=== PATIENT | female | born 1950 | race Caucasian/White ===

== ENCOUNTER 2017-05-31 05:55 | Emergency (ER) | payer MEDICARE ==
[2017-05-31] MEDS ORDERED: Zofran 4 MG/2 ML VIAL IV ONE (06:19)
[2017-05-31] MEDS ORDERED: ROCEPHIN 1 Gm-D5w 50 ml Bag** 1 G/50 ML IVPB IV STA (06:19)
--- NOTE | 2017-05-31 06:19 | ERPHSYRPT ---
- History of Present Illness Source: patient Exam Limitations: no limitations Patient Subjective Stated Complaint: sob this morning. being treated for sinus infection since thursday.. cough with clear phlegm. unsure of fever lynne to broken thermometer Triage Nursing Assessment: alert and oriented. slight SOA with exertion. color pink. skin warm dry. course lung sounds auscultated. head congestion with ear stuffiness. denies CP. no pedal edema noted. Timing/Duration: day(s) Cough Quality/Degree: productive cough Possible Cause: no prior episodes Modifying Factors: Improves With: activity Associated Symptoms: fever, cough, muscle aches, shortness of breath, sinus infection Hx Tetanus, Diphtheria Vaccination/Date Given: Yes Hx Influenza Vaccination/Date Given: Yes Hx Pneumococcal Vaccination/Date Given: Yes Immunizations Up to Date: (unknown) <ARISTEO DUMONT - Last Filed: 05/31/17 07:06> <PRITESH WISDOM - Last Filed: 05/31/17 10:34> - History of Present Illness Time Seen by Provider: 05/31/17 06:13 Physician History: pt has had flu like symptoms and cough several days and placed on AB but now is SObreath - concerned because she has CAD as well (ARISTEO DUMONT) Allergies/Adverse Reactions: No Known Drug Allergies Allergy (Verified 02/24/16 04:23) Home Medications: Lisinopril 5 mg PO HS 03/06/14 [History] Aspirin 324 mg PO DAILY 02/24/16 [History] Atorvastatin Calcium 80 mg PO HS 02/24/16 [History] Isosorbide Mononitrate 30 mg [Imdur 30 MG] 30 mg PO DAILY 02/24/16 [History ] Metoprolol Tartrate 25 mg [Lopressor 25MG Tab] 25 mg PO BID 02/24/16 [ History] Sertraline HCl 25 mg PO HS 02/24/16 [History] - Review of Systems Constitutional: No Fever, No Chills Eyes: No Symptoms Ears, Nose, & Throat: No Symptoms Respiratory: Cough, No Dyspnea Cardiac: No Chest Pain, No Edema, No Syncope Abdominal/Gastrointestinal: No Abdominal Pain, No Nausea, No Vomiting, No Diarrhea Genitourinary Symptoms: No Dysuria Musculoskeletal: No Back Pain, No Neck Pain Skin: No Rash Neurological: No Dizziness, No Focal Weakness, No Sensory Changes Psychological: No Symptoms Endocrine: No Symptoms All Other Systems: Reviewed and Negative <SEBASARISTEOABELINO EUCEDA - Last Filed: 05/31/17 07:06> - Past Medical History Pertinent Past Medical History: Yes Neurological History: No Pertinent History ENT History: No Pertinent History Cardiac History: Angina, Hypertension Respiratory History: No Pertinent History Endocrine Medical History: No Pertinent History Musculoskeletal History: No Pertinent History GI Medical History: Gallbladder Disease History: No Pertinent History Psycho-Social History: Anxiety, Depression Female Reproductive Disorders: Fibroids - Past Surgical History Past Surgical History: Yes Neuro Surgical History: No Pertinent History Cardiac: No Pertinent History Respiratory: No Pertinent History Gastrointestinal: Cholecystectomy Genitourinary: No Pertinent History Musculoskeletal: No Pertinent History Female Surgical History: Hysterectomy - Social History Smoking Status: Never smoker Exposure to second hand smoke: No Drug Use: none Patient Lives Alone: No - Female History Hx Now: No <ARISTEO DUMONT - Last Filed: 05/31/17 07:06> - Physical Exam General Appearance: no apparent distress, alert Eye Exam: PERRL/EOMI, eyes nml inspection Ears, Nose, Throat Exam: normal ENT inspection, TMs normal, pharynx normal, moist mucous membranes Neck Exam: normal inspection, non-tender, supple, full range of motion Respiratory Exam: airway intact, crackles/rales, rhonchi, No respiratory distress Cardiovascular Exam: regular rate/rhythm, normal heart sounds Gastrointestinal/Abdomen Exam: soft, No tenderness Back Exam: normal inspection, No CVA tenderness, No vertebral tenderness Extremity Exam: normal inspection, normal range of motion Neurologic Exam: alert, oriented x 3, cooperative, normal mood/affect, sensation nml, No motor deficits Skin Exam: normal color, warm, dry, No rash Lymphatic Exam: No adenopathy SpO2: 95 Oxygen Delivery: Room Air <ARISTEO DUMONT - Last Filed: 05/31/17 07:06> - Nursing Vital Signs Nursing Vital Signs: Initial Vital Signs Temperature 98.7 F 05/31/17 06:06 Pulse Rate 96 H 05/31/17 06:06 Respiratory Rate 18 05/31/17 06:06 Blood Pressure 138/91 05/31/17 06:06 O2 Sat by Pulse Oximetry 95 05/31/17 06:06 Pain Scale Pain Intensity 0 - Course Nursing assessment & vital signs reviewed: Yes EKG Interpreted by Me: Sinus Rhythm, Right Bundle Branch Block, Non-specific ST Changes - Radiology Exams Chest X-ray Interpretation: Reviewed by me, Infiltrates (bilateral infiltrates RML,LLL /lingula) <ARISTEO DUMONT - Last Filed: 05/31/17 07:06> - CT Exams CTA chest CT Interpretation: Tele-radiologist Report, No PE (no pneumonia) <PRITESH WISDOM - Last Filed: 05/31/17 10:34> Ordered Tests: Active Orders 24 hr Category Date Time Status Button Cutting Machine Operator STAT Care 05/31/17 06:20 Active Clean Catch Urine Specimen STAT Care 05/31/17 06:19 Active EKG-ER Only STAT Care 05/31/17 06:19 Active IV Insertion STAT Care 05/31/17 06:19 Active Oxygen-ED Only NASAL CANNULA 2 lpm Care 05/31/17 06:19 Active CHEST 1 VIEW (PORTABLE) Stat Exams 05/31/17 06:19 Completed CHEST WITH CONTRAST [CT] Stat Exams 05/31/17 07:35 Completed CBC W DIFF Stat Lab 05/31/17 06:30 Completed CMP Stat Lab 05/31/17 06:30 Completed CULTURE, THROAT Stat Lab 05/31/17 07:05 Received D-DIMER QUANTITATION Stat Lab 05/31/17 06:48 Completed Lactic Acid Stat Lab 05/31/17 06:30 Completed Lactic Acid Stat Lab 05/31/17 09:30 Completed NT PRO BNP Stat Lab 05/31/17 06:30 Completed STREP SCREEN-BETA A Stat Lab 05/31/17 07:05 Completed TROPONIN Q3H Lab 05/31/17 06:30 Completed TROPONIN Q3H Lab 05/31/17 09:30 Completed TROPONIN Q3H Lab 05/31/17 12:30 Ordered TROPONIN Q3H Lab 05/31/17 15:30 Ordered TROPONIN Q3H Lab 05/31/17 18:30 Ordered UA W/RFX UR CULTURE Stat Lab 05/31/17 06:19 Ordered Respiratory Nebulizer STAT RT 05/31/17 06:31 Completed Respiratory Nebulizer STAT RT 05/31/17 10:27 Active Medication Summary Generic Name Dose Route Start Last Admin Trade Name Freq PRN Reason Stop Dose Admin Sodium Chloride 1,000 mls @ 50 mls/hr 05/31/17 06:30 05/31/17 06:33 Sodium Chloride 0.9% 1000 Ml IV 06/30/17 06:29 50 mls/hr .Q20H TOÑO Administration Discontinued Medications Generic Name Dose Route Start Last Admin Trade Name Harsha PRN Reason Stop Dose Admin Albuterol Sulfate 2.5 mg 05/31/17 10:27 05/31/17 10:32 Proventil 2.5 Mg/3 Ml Neb IH 05/31/17 10:28 2.5 mg STAT ONE Administration Albuterol Sulfate Confirm 05/31/17 10:31 Proventil 2.5 Mg/3 Ml Neb Administered 05/31/17 10:32 Dose 2.5 mg IH .STK-MED ONE Albuterol/Ipratropium 3 ml 05/31/17 06:30 05/31/17 06:53 Duoneb 0.5-3 Mg/3 Ml Neb IH 05/31/17 06:31 3 ml STAT ONE Administration Albuterol/Ipratropium Confirm 05/31/17 06:52 Duoneb 0.5-3 Mg/3 Ml Neb Administered 05/31/17 06:53 Dose 3 ml IH .STK-MED ONE Aspirin 324 mg 05/31/17 06:55 05/31/17 06:57 Baby Aspirin 81 Mg Chew PO 05/31/17 06:56 324 mg STAT ONE Administration Aspirin Confirm 05/31/17 06:56 Baby Aspirin 81 Mg Chew Administered 05/31/17 06:57 Dose 324 mg .ROUTE .STK-MED ONE Ceftriaxone Sodium/Dextrose 1 g in 50 mls @ 100 mls/hr 05/31/17 06:19 06:33 Rocephin 1 Gm-D5w 50 Ml Bag IV 05/31/17 06:48 100 mls/hr STAT STA Administration Ceftriaxone Sodium/Dextrose Confirm 05/31/17 06:26 Rocephin 1 Gm-D5w 50 Ml Bag Administered 05/31/17 06:27 Dose 1 g in 50 mls @ ud IV .STK-MED ONE Azithromycin 500 mg in 250 mls @ 250 mls/hr 05/31/17 06:27 05/31/17 08:37 Zithromax 500 Mg/ 250 Ml Nacl Premix IV 05/31/17 07:26 250 mls/hr STAT STA Administration Piperacillin Sod/Tazobactam Sod 3.375 gm in 100 mls @ 200 mls/hr 05/31/17 06: 27 05/31/17 06:52 Zosyn 3.375gm/100 Ml D5w IV 05/31/17 06:56 200 mls/hr STAT STA Administration Piperacillin Sod/Tazobactam Sod Confirm 05/31/17 06:39 Zosyn 3.375gm/100 Ml D5w Administered 05/31/17 06:40 Dose 3.375 gm in 100 mls @ ud IV .STK-MED ONE Azithromycin Confirm 05/31/17 08:13 Zithromax 500 Mg/ 250 Ml Nacl Premix Administered 05/31/17 08:14 Dose 500 mg in 250 mls @ ud IV .STK-MED ONE Methylprednisolone Sodium Succinate 40 mg 05/31/17 06:49 05/31/17 07:01 Solu-Medrol 125 Mg IV 05/31/17 06:50 40 mg STAT ONE Administration Methylprednisolone Sodium Succinate Confirm 05/31/17 06:59 Solu-Medrol 125 Mg Administered 05/31/17 07:00 Dose 125 mg .ROUTE .STK-MED ONE Ondansetron HCl 4 mg 05/31/17 06:19 05/31/17 06:33 Zofran 4 Mg/2 Ml Vial IV 05/31/17 06:20 4 mg STAT ONE Administration Ondansetron HCl Confirm 05/31/17 06:26 Zofran 4 Mg/2 Ml Vial Administered 05/31/17 06:27 Dose 4 mg .ROUTE .STK-MED ONE Lab/Rad Data: Laboratory Result Diagrams 05/31/17 06:30 05/31/17 06:30 Laboratory Results 05/31/17 05/31/17 05/31/17 Range/Units 09:30 09:30 07:05 WBC (4.0-10.5) K/mm3 RBC (4.1-5.4) M/mm3 Hgb (12.0-16.0) gm/dl Hct (35-47) % MCV (78-100) fl MCH (26-32) pg MCHC (32-36) g/dl RDW (11.5-14.0) % Plt Count (150-450) K/mm3 MPV (6-9.5) fl Gran % (36.0-66.0) % Lymphocytes % (24.0-44.0) % Monocytes % (0.0-12.0) % Eosinophils % (0.00-5.0) % Basophils % (0.0-0.4) % Basophils # (0-0.4) D-Dimer (215-500) ng/mL Sodium (137-145) mmol/L Potassium (3.5-5.1) mmol/L Chloride (98-107) mmol/L Carbon Dioxide (22-30) mmol/L Anion Gap (5-15) MEQ/L BUN (7-17) mg/dL Creatinine (0.52-1.04) mg/dL Estimated GFR ML/MIN Glucose (74-106) mg/dL Lactic Acid 1.1 (0.4-2.0) Calcium (8.4-10.2) mg/dL Total Bilirubin (0.2-1.3) mg/dL AST (14-36) U/L ALT (0-35) U/L Alkaline Phosphatase (38-126) U/L Troponin I < 0.012 (0.000-0.034) ng/mL NT-Pro-B Natriuret Pep (0-900) pg/mL Serum Total Protein (6.3-8.2) g/dL Albumin (3.5-5.0) g/dL Influenza Type A Ag (NEGATIVE) Influenza Type B Ag (NEGATIVE) RSV (PCR) (Negative) Streptococcus Screen NEGATIVE (Negative) 05/31/17 05/31/17 05/31/17 Range/Units 06:48 06:40 06:30 WBC (4.0-10.5) K/mm3 RBC (4.1-5.4) M/mm3 Hgb (12.0-16.0) gm/dl Hct (35-47) % MCV (78-100) fl MCH (26-32) pg MCHC (32-36) g/dl RDW (11.5-14.0) % Plt Count (150-450) K/mm3 MPV (6-9.5) fl Gran % (36.0-66.0) % Lymphocytes % (24.0-44.0) % Monocytes % (0.0-12.0) % Eosinophils % (0.00-5.0) % Basophils % (0.0-0.4) % Basophils # (0-0.4) D-Dimer 1145.17 H* (215-500) ng/mL Sodium (137-145) mmol/L Potassium (3.5-5.1) mmol/L Chloride (98-107) mmol/L Carbon Dioxide (22-30) mmol/L Anion Gap (5-15) MEQ/L BUN (7-17) mg/dL Creatinine (0.52-1.04) mg/dL Estimated GFR ML/MIN Glucose (74-106) mg/dL Lactic Acid (0.4-2.0) Calcium (8.4-10.2) mg/dL Total Bilirubin (0.2-1.3) mg/dL AST (14-36) U/L ALT (0-35) U/L Alkaline Phosphatase (38-126) U/L Troponin I < 0.012 (0.000-0.034) ng/mL NT-Pro-B Natriuret Pep (0-900) pg/mL Serum Total Protein (6.3-8.2) g/dL Albumin (3.5-5.0) g/dL Influenza Type A Ag NEGATIVE (NEGATIVE) Influenza Type B Ag NEGATIVE (NEGATIVE) RSV (PCR) NEGATIVE (Negative) Streptococcus Screen (Negative) 05/31/17 05/31/17 05/31/17 Range/Units 06:30 06:30 06:30 WBC 8.6 (4.0-10.5) K/mm3 RBC 5.07 (4.1-5.4) M/mm3 Hgb 14.5 (12.0-16.0) gm/dl Hct 44.5 (35-47) % MCV 87.8 (78-100) fl MCH 28.6 (26-32) pg MCHC 32.6 (32-36) g/dl RDW 15.2 H (11.5-14.0) % Plt Count 232 (150-450) K/mm3 MPV 12.0 H (6-9.5) fl Gran % 62.4 (36.0-66.0) % Lymphocytes % 22.1 L (24.0-44.0) % Monocytes % 10.8 (0.0-12.0) % Eosinophils % 4.4 (0.00-5.0) % Basophils % 0.3 (0.0-0.4) % Basophils # 0.03 (0-0.4) D-Dimer (215-500) ng/mL Sodium 140 (137-145) mmol/L Potassium 3.7 (3.5-5.1) mmol/L Chloride 104 (98-107) mmol/L Carbon Dioxide 25 (22-30) mmol/L Anion Gap 15.5 H (5-15) MEQ/L BUN 15 (7-17) mg/dL Creatinine 0.67 (0.52-1.04) mg/dL Estimated GFR > 60 ML/MIN Glucose 129 H (74-106) mg/dL Lactic Acid 2.0 (0.4-2.0) Calcium 9.2 (8.4-10.2) mg/dL Total Bilirubin 0.40 (0.2-1.3) mg/dL AST 22 (14-36) U/L ALT 21 (0-35) U/L Alkaline Phosphatase 118 (38-126) U/L Troponin I (0.000-0.034) ng/mL NT-Pro-B Natriuret Pep 263 (0-900) pg/mL Serum Total Protein 7.1 (6.3-8.2) g/dL Albumin 3.9 (3.5-5.0) g/dL Influenza Type A Ag (NEGATIVE) Influenza Type B Ag (NEGATIVE) RSV (PCR) (Negative) Streptococcus Screen (Negative) - Progress Progress: re-examined Air Movement: good Blood Culture(s) Obtained: No Antibiotics given: Yes Counseled pt/family regarding: diagnosis, need for follow-up, rad results <ARISTEO DUMONT - Last Filed: 05/31/17 07:06> <PRITESH WISDOM - Last Filed: 05/31/17 10:34> - Progress Progress Note: 05/31/17 06:53 the infiltrates are similar to those observed chronically for the past few years , and with normal WBC and no fever and acute sobreath there is concern for potential cardiac or PE so D-Dimer and trops are ordered. and ASA given 05/31/17 07:03 [address] over to Dr Wisdom after discussion of pending labs for disp and tx ( ARISTEO DUMONT) 05/31/17 07:55 Hx: 66 y/o patient of Dr Senior was initially seen per Dr Dumont. She has recent sinus drng and cough. Some fevers at home. She awoke this AM around 4AM with moderately severe shortness of breath. Had to sit in her chair to breath. Could not lie flat. No chest pain. No N/V. She saw Dr Senior recently for the sinuses and started augmentin which gave her diarrhea. Prior CABG. She has a neb machine at home but has not been using it. PE: awake, alert, pleasant, obese. Lungs clear. Abd soft and NT. Some pedal edema. D-dimer was elevated so CTA chest ordered per Dr Dumont plan. 05/31/17 09:36 CTA negative. She is feeling better. Has ambulated well. Will stop augmentin due to diarrhea. Add zithromax and she will start her albuterol. Rx prednsone. To follow up with Dr Senior. 05/31/17 10:34 Ambulated well. 2nd alb neb given. 2nd troponin neg. (PRITESH WISDOM) <ARISTEO DUMONT - Last Filed: 05/31/17 07:06> - Departure Time of Disposition: 10:34 Departure Disposition: Home Critical Care Time: No <PRITESH WISDOM - Last Filed: 05/31/17 10:34> - Departure Clinical Impression: Acute bronchitis, Shortness of breath Condition: Stable Referrals: MARTINE SENIOR [Primary Care Provider] - Instructions: Acute Bronchitis, Adult (DC), Cough, Adult (DC) Additional Instructions: UPPER RESPIRATORY INFECTIONS 1. The signs and symptoms of a cold may last up to 10 days. These illnesses are due to viruses which are not treatable with antibiotics. 2. The following suggestions can aid in recovery and to minimize symptoms: A. Increase fluid intake. B. Acetaminophen or Ibuprofen as directed. C. Avoid smoking environments as this will increase the risk of developing pneumonia. D. For children, may use a cool mist vaporizer in the child's room. 3. Contact your Family Physician if you note: A. Persisten fever >103 for more than 3 days B. Breathing difficulty C. Productive cough of yellow/green sputum D. Illness greater than 7 days E. Persistent vomiting F. Stiff neck Rx zithromax to start Thursday AM. Rx prednisone to start Thursday. Take your albuterol nebs every 4 hours. Follow up with Dr Senior in 1-2 days. Return for problems or concerns. Prescriptions: Azithromycin 250 mg [Zithromax 250 MG TABLET] 1 tab PO DAILY #4 tablet Prednisone 20 mg [Deltasone 20 mg] 2 tab PO DAILY #10 tablet
[2017-05-31] MEDS ORDERED: ROCEPHIN 1 Gm-D5w 50 ml Bag** 1 G/50 ML IVPB IV ONE (06:26)
[2017-05-31] MEDS ORDERED: Zofran 4 MG/2 ML VIAL ONE (06:26)
[2017-05-31] MEDS ORDERED: Sodium Chloride 0.9% 1000 ML 1,000 ML ONE (06:26)
[2017-05-31] MEDS ORDERED: Zosyn 3.375GM/100 Ml D5W 3.375 GM/100 ML IVPB IV STA (06:27)
[2017-05-31] MEDS ORDERED: Zithromax 500 MG/ 250 ML NaCl Premix 500 MG/250 ML IVPB IV STA (06:27)
[2017-05-31] MEDS ORDERED: Sodium Chloride 0.9% 1000 ML 1,000 ML IV SCH (06:30)
[2017-05-31] MEDS ORDERED: DUONEB 0.5-3 MG/3 ml Neb IH ONE ×2 (06:30→06:52)
[2017-05-31] MEDS ORDERED: Zosyn 3.375GM/100 Ml D5W 3.375 GM/100 ML IVPB IV ONE (06:39)
[2017-05-31 06:41] LABS: BASOPHIL % 0.3 % (0.0-0.4); Basophil (Absolute #) 0.03 (0-0.4); Eosinophil % 4.4 % (0.00-5.0); Eosinophil (Absolute #) 0.38 (0-0.5); Granulocyte Absolute (ANC) 5.34 (1.4-6.9); Granulocytes % 62.4 % (36.0-66.0); Hematocrit 44.5 % (35-47); Hemoglobin 14.5 gm/dl (12.0-16.0); Lymphocytes % 22.1 % (24.0-44.0); Mean Cell Volume 87.8 fl (78-100); Mean Corpuscular Hemoglobin 28.6 pg (26-32); Mean Corpuscular Hgb Concent. 32.6 g/dl (32-36); Monocyte (Absolute #) 0.93 (0.0-1.3); Monocytes % 10.8 % (0.0-12.0); Platelet Count 232 K/mm3 (150-450); Red Blood Count 5.07 M/mm3 (4.1-5.4); Red Cell Distribution Width 15.2 % (11.5-14.0); White Blood Count 8.6 K/mm3 (4.0-10.5)
[2017-05-31] MEDS ORDERED: solu-MEDROL 125 MG IV ONE (06:49)
[2017-05-31] MEDS ORDERED: BABY ASPIRIN 81 MG CHEW PO ONE (06:55)
[2017-05-31] MEDS ORDERED: BABY ASPIRIN 81 MG CHEW ONE (06:56)
[2017-05-31] MEDS ORDERED: solu-MEDROL 125 MG ONE (06:59)
[2017-05-31 07:07] LABS: ALBUMIN 3.9 g/dL (3.5-5.0); ALKALINE PHOSPHATASE 118 U/L (38-126); ANION GAP 15.5 MEQ/L (5-15); BLOOD UREA NITROGEN 15 mg/dL (7-17); CHLORIDE 104 mmol/L (98-107); Calcium 9.2 mg/dL (8.4-10.2); Carbon Dioxide 25 mmol/L (22-30); Creatinine 1 0.67 mg/dL (0.52-1.04); Glucose 129 mg/dL (74-106); Potassium 3.7 mmol/L (3.5-5.1); SGOT/AST 22 U/L (14-36); SGPT/ALT 21 U/L (0-35); SODIUM 140 mmol/L (137-145); Total Protein 7.1 g/dL (6.3-8.2)
[2017-05-31 07:15] LABS: NT PRO BNP 263 pg/mL (0-900)
[2017-05-31 07:49] LABS: INFLUENZA A NEGATIVE (NEGATIVE); INFLUENZA B NEGATIVE (NEGATIVE); RESPIRATORY SYNCTIAL VIRUS NEGATIVE (Negative)
[2017-05-31] MEDS ORDERED: Zithromax 500 MG/ 250 ML NaCl Premix 500 MG/250 ML IVPB IV ONE (08:13)
[2017-05-31 08:50] VITALS: BP 129/69
--- NOTE | 2017-05-31 09:33 | XRAY ---
Indication: Short of breath. Comparison: February 24, 2016. Portable chest unchanged again demonstrating stable lingular fibrosis/scarring and CABG surgery. Remaining heart and lungs unremarkable. Bony thorax intact again with mild osteopenia and degenerative changes.
--- NOTE | 2017-05-31 09:36 | XRAY ---
Indication: Short of breath. Elevated d-dimer. Multiple contiguous axial images obtained through the chest using 80 cc Isovue 370 contrast and PE protocol. Comparison: July 26, 2015. There is good opacification of the pulmonary arteries to include the lobar and segmental branches. Again no filling defect or pulmonary embolus. Heart is not enlarged and demonstrates interval CABG surgery. Aorta remains mildly arteriosclerotic without aneurysm/dissection. No pathologic mediastinal/hilar lymphadenopathy. Examination of the lung parenchyma demonstrates stable benign left upper lobe noncalcified micronodule. Minimal bibasilar dependent atelectasis and lingular fibrosis/scarring. No new pulmonary mass, infiltrate, or effusion. Bony thorax intact again with mild degenerative changes throughout the spine. Limited upper abdomen demonstrate stable hepatic cyst and cholecystectomy clips. Impression: 1. Again negative pulmonary embolus. No acute cardiopulmonary abnormalities. 2. Interval CABG surgery. 3. Stable left upper lobe benign micronodule and hepatic cyst. Comment: Preliminary interpretation was made by [facility]. No discrepancy. CTDI 23.68
[2017-05-31] MEDS ORDERED: PROVENTIL 2.5 MG/3 ML NEB IH ONE ×2 (10:27→10:31)
[2017-05-31 11:26] VITALS: PULSE 86; O2SAT 93
== END 2017-05-31 10:44 | disposition home or self-care (01) ==
LOC: ED 05:55
DX: J20.9 Acute bronchitis, unspecified (principal); R06.02 Shortness of breath; R79.1 Abnormal coagulation profile; Z95.1 Presence of aortocoronary bypass graft; K52.1 Toxic gastroenteritis and colitis; T36.0X5A Adverse effect of penicillins, initial encounter; I25.10 Atherosclerotic heart disease of native coronary artery without angina pectoris; I45.10 Unspecified right bundle-branch block; Z79.899 Other long term (current) drug therapy
CPT/HCPCS: 36000; 36415; 71045; 71260; 80053; 83605; 83880; 84484; 85025; 85379; 87070; 87430; 87631; 93005; 93041; 94150; 94640; 96360; 96361; 96365; 96366; 96367; 96374; 96375; 99284; J0456; J0696; J2405; J2543; J2930; A9270-GY

== ENCOUNTER 2020-12-02 21:43 | Observation (INO) | payer MEDICARE ==
[2020-12-02] MEDS ORDERED: Lasix 40 MG/4 ML IV ONE (22:03)
[2020-12-02] MEDS ORDERED: NITRO-BID 2% UD PACKETS TOP ONE (22:03)
[2020-12-02] MEDS ORDERED: DUONEB 0.5-3 MG/3 ml Neb IH ONE ×2 (22:03→22:22)
[2020-12-02] MEDS ORDERED: BABY ASPIRIN 81 MG CHEW PO ONE (22:04)
[2020-12-02] MEDS ORDERED: Lasix 40 MG/4 ML ONE (22:08)
[2020-12-02] MEDS ORDERED: BABY ASPIRIN 81 MG CHEW ONE (22:08)
[2020-12-02] MEDS ORDERED: NITRO-BID 2% UD PACKETS ONE (22:08)
--- NOTE | 2020-12-02 22:31 | ERPHSYRPT ---
- History of Present Illness Time Seen by Provider: 12/02/20 21:51 Source: patient, EMS Exam Limitations: no limitations Physician History: 69 years old morbidly obese female with history of coronary artery disease status post stenting, congestive heart failure, hypertension presented to the ER with increasing shortness of breath since yesterday. Patient report initially it was more with activity and today she is having shortness of breath even at resting. She took her breathing treatment but does not seem to help much. On EMS arrival her oxygen saturation was 91%, placed on 4 L and was 95% on arrival in the ER. Patient noted chest pain but noticed increased swelling in bilateral lower extremities. No fever chills reported. Minimal nonproductive cough. D enies any sick contact. Vaccinated against COVID-19. Timing/Duration: yesterday, constant, gradual onset, worse Activities at Onset: activity, rest Severity of Dyspnea-Max: moderate Severity of Dyspnea-Current: moderate Possible Cause: unknown cause Modifying Factors: Improves With: albuterol nebulizer, oxygen, rest. Worsens With: exertion Associated Symptoms: cough, edema, heaviness, tightness, No chest pain/discomfort, No productive cough Allergies/Adverse Reactions: No Known Drug Allergies Allergy (Verified 02/24/16 04:23) Home Medications: lisinopriL [Lisinopril] 20 mg PO DAILY 03/06/14 [History] Atorvastatin Calcium 80 mg PO DAILY 02/24/16 [History] Isosorbide Mononitrate 30 mg [Imdur 30 MG] 30 mg PO DAILY 02/24/16 [History] Amlodipine Besylate [Norvasc] 5 mg PO DAILY 12/02/20 [History] Hx Tetanus, Diphtheria Vaccination/Date Given: Yes Hx Influenza Vaccination/Date Given: Yes Hx Pneumococcal Vaccination/Date Given: Yes - Review of Systems Constitutional: No Symptoms Eyes: No Symptoms Ears, Nose, & Throat: No Symptoms Respiratory: Cough, Dyspnea, Dyspnea on Exertion (BAH) Cardiac: Edema Abdominal/Gastrointestinal: No Symptoms Genitourinary Symptoms: No Symptoms Musculoskeletal: Arthralgias Skin: No Symptoms Neurological: No Symptoms Psychological: No Symptoms Endocrine: No Symptoms Hematologic/Lymphatic: No Symptoms Immunological/Allergic: No Symptoms - Past Medical History Pertinent Past Medical History: Yes Neurological History: No Pertinent History ENT History: No Pertinent History Cardiac History: Angina, Hypertension Respiratory History: No Pertinent History Endocrine Medical History: No Pertinent History Musculoskeletal History: No Pertinent History GI Medical History: Gallbladder Disease History: No Pertinent History Psycho-Social History: Anxiety, Depression Female Reproductive Disorders: Fibroids - Past Surgical History Past Surgical History: Yes Neuro Surgical History: No Pertinent History Cardiac: No Pertinent History Respiratory: No Pertinent History Gastrointestinal: Cholecystectomy Genitourinary: No Pertinent History Musculoskeletal: No Pertinent History Female Surgical History: Hysterectomy - Social History Smoking Status: Never smoker Exposure to second hand smoke: No Drug Use: none Patient Lives Alone: No - Nursing Vital Signs Nursing Vital Signs: Initial Vital Signs Temperature 98.4 F 12/02/20 21:59 Pulse Rate 91 H 12/02/20 21:59 Respiratory Rate 32 H 12/02/20 21:59 Blood Pressure 198/101 12/02/20 21:59 O2 Sat by Pulse Oximetry 99 12/02/20 21:59 Pain Scale Pain Intensity 0 - Physical Exam General Appearance: no apparent distress, alert Eye Exam: PERRL/EOMI, eyes nml inspection Ears, Nose, Throat Exam: hearing grossly normal, normal ENT inspection, normal pharynx Neck Exam: normal inspection, non-tender, full range of motion Respiratory Exam: diminished breath sounds, crackles/rales, rhonchi, No respiratory distress Cardiovascular/Chest Exam: normal heart sounds, regular rate/rhythm, edema Abdominal/Gastrointestinal Exam: soft, normal bowel sounds, No tenderness Extremity Exam: non-tender, normal range of motion, normal inspection, pedal edema (Bilateral nonpitting) Neurologic Exam: alert, oriented x 3, cooperative Skin Exam: normal color SpO2 Interpretation: O2 applied SpO2: 95 O2 Delivery: Nasal Cannula - Course EKG Interpreted by Me: RATE ([id number]), Sinus Rhythm, NORMAL AXIS, Right Bundle Branch Block, Non-specific ST Changes Ordered Tests: Active Orders 24 hr Category Date Time Status [employer] STAT Care 12/02/20 22:03 Active EKG-ER Only STAT Care 12/02/20 22:03 Active Gonzalez [Catheter-[place] Gonzalez] STAT Care 12/02/20 22:34 Active IV Insertion STAT Care 12/02/20 22:03 Active Oxygen-ED Only Nasal Cannula 2 lpm Care 12/02/20 22:03 Active CHEST 1 VIEW (PORTABLE) Stat Exams 12/02/20 22:03 Taken BLOOD CULTURE Stat Lab 12/02/20 22:28 Ordered CBC W DIFF Stat Lab 12/02/20 22:28 Completed CMP Stat Lab 12/02/20 22:28 Completed Lactic Acid Stat Lab 12/02/20 22:43 Completed MAGNESIUM Stat Lab 12/02/20 22:28 Completed NT PRO BNP Stat Lab 12/02/20 22:28 Completed TROPONIN Q3H Lab 12/02/20 22:31 Completed TROPONIN Q3H Lab 12/03/20 01:15 Ordered TROPONIN Q3H Lab 12/03/20 04:15 Ordered TROPONIN Q3H Lab 12/03/20 07:15 Ordered TROPONIN Q3H Lab 12/03/20 10:15 Ordered Respiratory Therapy Assessment DAILY RT 12/02/20 22:39 Active Medication Summary Generic Name Dose Route Start Last Admin Trade Name Freq PRN Reason Stop Dose Admin Azithromycin 500 mg in 250 mls @ 250 mls/hr 12/02/20 23:10 Zithromax 500 Mg/ 250 Ml Nacl Premix IV 12/03/20 00:09 STAT STA Ceftriaxone Sodium/Dextrose 2 g in 50 mls @ 100 mls/hr 12/02/20 23:10 Rocephin 2 Gm-D5w 50ml Bag IV 12/02/20 23:39 STAT STA Discontinued Medications Generic Name Dose Route Start Last Admin Trade Name Freq PRN Reason Stop Dose Admin Albuterol/Ipratropium 3 ml 12/02/20 22:03 12/02/20 22:15 Duoneb 0.5-3 Mg/3 Ml Neb IH 12/02/20 22:04 3 ml STAT ONE Administration Albuterol/Ipratropium Confirm 12/02/20 22:22 Duoneb 0.5-3 Mg/3 Ml Neb Administered 12/02/20 22:23 Dose 3 ml IH .STK-MED ONE Aspirin 324 mg 12/02/20 22:04 12/02/20 22:12 Baby Aspirin 81 Mg Chew PO 12/02/20 22:05 324 mg STAT ONE Administration Aspirin Confirm 12/02/20 22:08 Baby Aspirin 81 Mg Chew Administered 12/02/20 22:09 Dose 324 mg .ROUTE .STK-MED ONE Furosemide 60 mg 12/02/20 22:03 12/02/20 22:13 Lasix 40 Mg/4 Ml IV 12/02/20 22:04 60 mg STAT ONE Administration Furosemide Confirm 12/02/20 22:08 Lasix 40 Mg/4 Ml Administered 12/02/20 22:09 Dose 80 mg .ROUTE .STK-MED ONE Nitroglycerin 1 gm 12/02/20 22:03 12/02/20 22:12 Nitro-Bid 2% Ud Packets TOP 12/02/20 22:04 1 gm STAT ONE Administration Nitroglycerin Confirm 12/02/20 22:08 Nitro-Bid 2% Ud Packets Administered 12/02/20 22:09 Dose 1 gm .ROUTE .STK-MED ONE Lab/Rad Data: Laboratory Result Diagrams 12/02/20 22:28 12/02/20 22:28 Laboratory Results 12/02/20 12/02/20 12/02/20 Range/Units 22:43 22:31 22:28 WBC (4.0-10.5) K/mm3 RBC (4.1-5.4) M/mm3 Hgb (12.0-16.0) gm/dl Hct (35-47) % MCV (78-100) fl MCH (26-32) pg MCHC (32-36) g/dl RDW (11.5-14.0) % Plt Count (150-450) K/mm3 MPV (7.5-11.0) fl Gran % (36.0-66.0) % Eos # (Auto) (0-0.5) Absolute Lymphs (auto) (1.0-4.6) Absolute Monos (auto) (0.0-1.3) Lymphocytes % (24.0-44.0) % Monocytes % (0.0-12.0) % Eosinophils % (0.00-5.0) % Basophils % (0.0-0.4) % Absolute Granulocytes (1.4-6.9) Basophils # (0-0.4) Sodium 137 (137-145) mmol/L Potassium 3.8 (3.5-5.1) mmol/L Chloride 106 (98-107) mmol/L Carbon Dioxide 22 (22-30) mmol/L Anion Gap 12.8 (5-15) MEQ/L BUN 18 H (7-17) mg/dL Creatinine 0.73 (0.52-1.04) mg/dL Estimated GFR > 60.0 ML/MIN Glucose 121 H (74-106) mg/dL Lactic Acid 1.1 (0.4-2.0) Calcium 9.0 (8.4-10.2) mg/dL Magnesium 2.0 (1.6-2.3) mg/dL Total Bilirubin 0.60 (0.2-1.3) mg/dL AST 35 (14-36) U/L ALT 39 H (0-35) U/L Alkaline Phosphatase 118 (38-126) U/L Troponin I 0.020 (0.000-0.034) ng/mL NT-Pro-B Natriuret Pep 1960 H (0-900) pg/mL Serum Total Protein 7.1 (6.3-8.2) g/dL Albumin 4.0 (3.5-5.0) g/dL 12/02/20 Range/Units 22:28 WBC 10.2 (4.0-10.5) K/mm3 RBC 4.92 (4.1-5.4) M/mm3 Hgb 13.7 (12.0-16.0) gm/dl Hct 43.1 (35-47) % MCV 87.6 (78-100) fl MCH 27.8 (26-32) pg MCHC 31.8 L (32-36) g/dl RDW 16.3 H (11.5-14.0) % Plt Count 214 (150-450) K/mm3 MPV 12.3 H (7.5-11.0) fl Gran % 76.0 H (36.0-66.0) % Eos # (Auto) 0.24 (0-0.5) Absolute Lymphs (auto) 1.39 (1.0-4.6) Absolute Monos (auto) 0.79 (0.0-1.3) Lymphocytes % 13.6 L (24.0-44.0) % Monocytes % 7.8 (0.0-12.0) % Eosinophils % 2.4 (0.00-5.0) % Basophils % 0.2 (0.0-0.4) % Absolute Granulocytes 7.75 H (1.4-6.9) Basophils # 0.02 (0-0.4) Sodium (137-145) mmol/L Potassium (3.5-5.1) mmol/L Chloride (98-107) mmol/L Carbon Dioxide (22-30) mmol/L Anion Gap (5-15) MEQ/L BUN (7-17) mg/dL Creatinine (0.52-1.04) mg/dL Estimated GFR ML/MIN Glucose (74-106) mg/dL Lactic Acid (0.4-2.0) Calcium (8.4-10.2) mg/dL Magnesium (1.6-2.3) mg/dL Total Bilirubin (0.2-1.3) mg/dL AST (14-36) U/L ALT (0-35) U/L Alkaline Phosphatase (38-126) U/L Troponin I (0.000-0.034) ng/mL NT-Pro-B Natriuret Pep (0-900) pg/mL Serum Total Protein (6.3-8.2) g/dL Albumin (3.5-5.0) g/dL - Progress Progress: improved, re-examined Air Movement: fair Progress Note: 12/02/20 23:16 69 years old is evaluated for increasing dyspnea on exertion and dropping oxygen saturation. She is on 2 to 3 L with sats around 95%. She received neb treatment prior to arrival and I have given her 60 of Lasix and Nitropaste, on reevaluation she is feeling much better. Chest x-ray showed bilateral congestion with some questionable airspace disease and I have given a dose of an tibiotic as well. It seems more of his CHF exacerbation. Current work-up showed normal white count, normal lactate but elevated BNP and normal initial troponins. Discussed with , went over the history, work-up and current management, agreed with admission. Plan discussed with patient who understand and agrees with it. Blood Culture(s) Obtained: Yes Antibiotics given: Yes Discussed with : Liana Will see patient in: hospital (observation) Counseled pt/family regarding: lab results, diagnosis, rad results - Departure Departure Disposition: Observation Clinical Impression: CHF exacerbation Qualifiers: Heart failure type: unspecified Qualified Code(s): I50.9 - Heart failure, unspecified Condition: Good Critical Care Time: Yes Critical Care Time(excluding separately billable procedures): Critical 30-74 mins Referrals: MART[facility] SENIOR [NON-STAFF PHY W/O PRIVILEGES] - Instructions: Heart Failure
[2020-12-02 22:33] LABS: Absolute Neutrophil Ct (ANC) 7.75 (1.4-6.9); BASOPHIL % 0.2 % (0.0-0.4); Basophil (Absolute #) 0.02 (0-0.4); Eosinophil % 2.4 % (0.00-5.0); Eosinophil (Absolute #) 0.24 (0-0.5); Hematocrit 43.1 % (35-47); Hemoglobin 13.7 gm/dl (12.0-16.0); Lymphocyte (Absolute #) 1.39 (1.0-4.6); Lymphocytes % 13.6 % (24.0-44.0); Mean Cell Volume 87.6 fl (78-100); Mean Corpuscular Hemoglobin 27.8 pg (26-32); Mean Corpuscular Hgb Concent. 31.8 g/dl (32-36); Mean Platelet Volume 12.3 fl (7.5-11.0); Monocyte (Absolute #) 0.79 (0.0-1.3); Monocytes % 7.8 % (0.0-12.0); Platelet Count 214 K/mm3 (150-450); Red Blood Count 4.92 M/mm3 (4.1-5.4); Red Cell Distribution Width 16.3 % (11.5-14.0); White Blood Count 10.2 K/mm3 (4.0-10.5)
[2020-12-02 22:55] LABS: ALKALINE PHOSPHATASE 118 U/L (38-126); ANION GAP 12.8 MEQ/L (5-15); BLOOD UREA NITROGEN 18 mg/dL (7-17); CHLORIDE 106 mmol/L (98-107); Carbon Dioxide 22 mmol/L (22-30); Creatinine 1 0.73 mg/dL (0.52-1.04); EST GLOMERULAR FILTRATION RATE > 60.0 ML/MIN; Glucose 121 mg/dL (74-106); NT PRO BNP 1960 pg/mL (0-900); Potassium 3.8 mmol/L (3.5-5.1); SGOT/AST 35 U/L (14-36); SGPT/ALT 39 U/L (0-35); SODIUM 137 mmol/L (137-145); Total Protein 7.1 g/dL (6.3-8.2)
[2020-12-02] MEDS ORDERED: Zithromax 500 MG/ 250 ML NaCl Premix 500 MG/250 ML IVPB IV STA (23:10)
[2020-12-02] MEDS ORDERED: ROCEPHIN 2 Gm-D5w 50ML BAG** 2 G/50 ML IVPB IV STA (23:10)
[2020-12-02] MEDS ORDERED: Zithromax 500 MG/ 250 ML NaCl Premix 500 MG/250 ML IVPB IV ONE (23:16)
[2020-12-02] MEDS ORDERED: ROCEPHIN 2 Gm-D5w 50ML BAG** 2 G/50 ML IVPB IV ONE (23:16)
[2020-12-03] MEDS ORDERED: Zofran 4 MG/2 ML VIAL IV PRN (00:58)
[2020-12-03] MEDS ORDERED: MORPHINE SULFATE 2 MG INJ IV PRN (00:58)
[2020-12-03] MEDS ORDERED: DUONEB 0.5-3 MG/3 ml Neb IH SCH (01:00)
[2020-12-03] MEDS ORDERED: DUONEB 0.5-3 MG/3 ml Neb IH PRN (01:58)
[2020-12-03 05:35] LABS: Absolute Neutrophil Ct (ANC) 6.09 (1.4-6.9); BASOPHIL % 0.1 % (0.0-0.4); Basophil (Absolute #) 0.01 (0-0.4); Eosinophil % 1.3 % (0.00-5.0); Eosinophil (Absolute #) 0.11 (0-0.5); Hematocrit 40.8 % (35-47); Hemoglobin 12.8 gm/dl (12.0-16.0); Lymphocyte (Absolute #) 1.53 (1.0-4.6); Lymphocytes % 17.7 % (24.0-44.0); Mean Cell Volume 88.1 fl (78-100); Mean Corpuscular Hemoglobin 27.6 pg (26-32); Mean Corpuscular Hgb Concent. 31.4 g/dl (32-36); Mean Platelet Volume 12.6 fl (7.5-11.0); Monocyte (Absolute #) 0.89 (0.0-1.3); Monocytes % 10.3 % (0.0-12.0); Neutrophil % 70.6 % (36.0-66.0); Platelet Count 221 K/mm3 (150-450); Red Blood Count 4.63 M/mm3 (4.1-5.4); Red Cell Distribution Width 16.5 % (11.5-14.0); White Blood Count 8.6 K/mm3 (4.0-10.5)
[2020-12-03 05:56] LABS: Potassium 3.7 mmol/L (3.5-5.1)
[2020-12-03 06:01] LABS: ALBUMIN 3.5 g/dL (3.5-5.0); ALKALINE PHOSPHATASE 99 U/L (38-126); BLOOD UREA NITROGEN 17 mg/dL (7-17); CHLORIDE 104 mmol/L (98-107); Calcium 8.8 mg/dL (8.4-10.2); Carbon Dioxide 23 mmol/L (22-30); Creatinine 1 0.69 mg/dL (0.52-1.04); EST GLOMERULAR FILTRATION RATE > 60.0 ML/MIN; Glucose 101 mg/dL (74-106); PREALBUMIN 17.13 mg/dL (17.6-36.0); SGOT/AST 28 U/L (14-36); SGPT/ALT 33 U/L (0-35); SODIUM 138 mmol/L (137-145); Total Protein 6.1 g/dL (6.3-8.2)
--- NOTE | 2020-12-03 08:45 | XRAY ---
Indication: Short of breath. Comparison: June 18, 2018. Portable chest demonstrates new cardiomegaly, vascular congestion, pulmonary edema, and small bibasilar effusions favoring cardiac decompensation/CHF. Superimposed pneumonia not completely excluded. Again incidental CABG, osteopenia, and moderate bony degenerative changes.
[2020-12-03] MEDS: ENOXAPARIN SODIUM SQ SCH (09:53)
[2020-12-03] MEDS: Furosemide 100mg/10 ml Vial IV SCH (09:54)
[2020-12-03] MEDS: PROTONIX 40 MG IV IV SCH (09:54)
[2020-12-03] MEDS: NORVASC 5 MG PO SCH (10:47)
[2020-12-03] MEDS: Imdur 30 MG PO SCH (10:47)
[2020-12-03] MEDS: ZOCOR 20MG PO SCH (10:48)
[2020-12-03] MEDS: Zestril 20 MG PO SCH (10:48)
[2020-12-03] MEDS ORDERED: Ambien 5 MG Tablet PO PRN (12:27)
[2020-12-03] MEDS: TYLENOL 325 MG PO PRN ×2 (12:52→21:19)
--- NOTE | 2020-12-03 13:19 | PCM.HP ---
History of Present Illness - Chief Complaint Chief Complaint: shortness of breath for 1-2 days History of Present Illness: is a 69 year old female.morbidly obese female with history of coronary artery disease status post stenting, congestive heart failure, hypertension presented to the ER with increasing shortness of breath since yesterday. Patient report initially it was more with activity and today she is having shortness of breath even at resting. She took her breathing treatment but does not seem to help much. On EMS arrival her oxygen saturation was 91%, placed on 4 L and was 95% on arrival in the ER. Patient noted chest pain but noticed increased swelling in bilateral lower extremities. No fever chills reported. Minimal nonproductive cough. Denies any sick contact. Vaccinated against COVID-19. Timing/Duration: yesterday, constant, gradual onset, worse - Review of Systems Constitutional: No Fever, No Chills Eyes: No Symptoms Ears, Nose, & Throat: No Symptoms Respiratory: Orthopnea, Short Of Breath, No Cough Cardiac: Chest Pain, Edema, Orthopnea, PND, No Syncope Abdominal/Gastrointestinal: No Abdominal Pain, No Nausea, No Vomiting, No Diarrhea Genitourinary Symptoms: No Dysuria Musculoskeletal: No Back Pain, No Neck Pain Skin: No Rash Neurological: No Dizziness, No Focal Weakness, No Sensory Changes Psychological: No Symptoms Endocrine: No Symptoms Hematologic/Lymphatic: No Symptoms Immunological/Allergic: No Symptoms Medications & Allergies Home Medications: Home Medication List lisinopriL [Lisinopril] 20 mg PO DAILY 03/06/14 [History Confirmed 12/02/20] Atorvastatin Calcium 80 mg PO DAILY 02/24/16 [History Confirmed 12/02/20] Isosorbide Mononitrate 30 mg [Imdur 30 MG] 30 mg PO DAILY 02/24/16 [History Confirmed 12/02/20] Amlodipine Besylate [Norvasc] 5 mg PO DAILY 12/02/20 [History Confirmed 12/02/20] Allergies/Adverse Reactions: Allergies Allergy/AdvReac Type Severity Reaction Status Date / Time No Known Drug Allergies Allergy Verified 02/24/16 04:23 - Past Medical History Past Medical History: Yes Neurological History: No Pertinent History ENT History: No Pertinent History Cardiac History: Angina, Hypertension Respiratory History: No Pertinent History Endocrine Medical History: No Pertinent History Musculoskelatal History: No Pertinent History GI Medical History: No Pertinent History History: No Pertinent History Pyscho-Social History: Anxiety, Depression Reproductive Disorders: Fibroids - Female History Are you now?: No - Past Surgical History Past Surgical History: Yes Neuro Surgical History: No Pertinent History Cardiac History: Cardiac Catheterization, Cardiac Stent Respiratory Surgery: No Pertinent History GI Surgical History: Cholecystectomy Genitourinary Surgical Hx: No Pertinent History Musculskeletal Surgical Hx: No Pertinent History Female Surgical History: Hysterectomy - Social History Smoking Status: Never smoker Exposure to second hand smoke: No Alcohol: None Drug Use: none - Physical Exam Vital Signs: Vital Signs - 24 hr Temp Pulse Resp BP Pulse Ox 12/03/20 11:54 97.6 F 86 20 142/73 94 L 12/03/20 11:07 87 16 94 L 12/03/20 08:00 97.6 F 79 22 156/73 94 L 12/03/20 04:00 98 F 82 20 143/65 95 12/03/20 01:35 22 94 L 12/03/20 01:29 97.5 F 94 H 20 148/80 94 L 12/02/20 23:18 95 12/02/20 23:12 90 18 153/97 95 12/02/20 22:45 94 H 24 196/111 94 L 12/02/20 22:39 95 H 28 H 99 12/02/20 21:59 98.4 F 91 H 32 H 198/101 99 General Appearance: no apparent distress, alert Neurologic Exam: alert, oriented x 3, cooperative, normal mood/affect, nml cerebellar function, nml station & gait, sensation nml, No motor deficits Eye Exam: PERRL/EOMI, eyes nml inspection Ears, Nose, Throat Exam: normal ENT inspection, TMs normal, pharynx normal, moist mucous membranes Neck Exam: normal inspection, non-tender, supple, full range of motion Respiratory Exam: diminished breath sounds, crackles/rales, rhonchi, wheezing, No respiratory distress Cardiovascular Exam: regular rate/rhythm, normal heart sounds, normal peripheral pulses Gastrointestinal/Abdomen Exam: soft, normal bowel sounds, No tenderness, No mass Back Exam: normal inspection, normal range of motion, No CVA tenderness, No vertebral tenderness Extremity Exam: normal inspection, normal range of motion, pelvis stable Skin Exam: normal color, warm, dry, No rash Lymphatic Exam: No adenopathy Results - Labs Lab/Micro Results: Lab Results-Last 24 Hours 12/02/20 12/02/20 12/02/20 Range/Units 22:28 22:28 22:31 WBC 10.2 (4.0-10.5) K/mm3 RBC 4.92 (4.1-5.4) M/mm3 Hgb 13.7 (12.0-16.0) gm/dl Hct 43.1 (35-47) % MCV 87.6 (78-100) fl MCH 27.8 (26-32) pg MCHC 31.8 L (32-36) g/dl RDW 16.3 H (11.5-14.0) % Plt Count 214 (150-450) K/mm3 MPV 12.3 H (7.5-11.0) fl Gran % 76.0 H (36.0-66.0) % Eos # (Auto) 0.24 (0-0.5) Absolute Lymphs (auto) 1.39 (1.0-4.6) Absolute Monos (auto) 0.79 (0.0-1.3) Lymphocytes % 13.6 L (24.0-44.0) % Monocytes % 7.8 (0.0-12.0) % Eosinophils % 2.4 (0.00-5.0) % Basophils % 0.2 (0.0-0.4) % Absolute Granulocytes 7.75 H (1.4-6.9) Basophils # 0.02 (0-0.4) Sodium 137 (137-145) mmol/L Potassium 3.8 (3.5-5.1) mmol/L Chloride 106 (98-107) mmol/L Carbon Dioxide 22 (22-30) mmol/L Anion Gap 12.8 (5-15) MEQ/L BUN 18 H (7-17) mg/dL Creatinine 0.73 (0.52-1.04) mg/dL Estimated GFR > 60.0 ML/MIN Glucose 121 H (74-106) mg/dL POC Glucometer (74 to 106) mg/dL Lactic Acid (0.4-2.0) Calcium 9.0 (8.4-10.2) mg/dL Magnesium 2.0 (1.6-2.3) mg/dL Total Bilirubin 0.60 (0.2-1.3) mg/dL AST 35 (14-36) U/L ALT 39 H (0-35) U/L Alkaline Phosphatase 118 (38-126) U/L Troponin I 0.020 (0.000-0.034) ng/mL NT-Pro-B Natriuret Pep 1960 H (0-900) pg/mL Serum Total Protein 7.1 (6.3-8.2) g/dL Albumin 4.0 (3.5-5.0) g/dL Prealbumin (17.6-36.0) mg/dL SARS-CoV-2 (PCR) (NEGATIVE) 12/02/20 12/02/20 12/03/20 Range/Units 22:43 23:46 01:38 WBC (4.0-10.5) K/mm3 RBC (4.1-5.4) M/mm3 Hgb (12.0-16.0) gm/dl Hct (35-47) % MCV (78-100) fl MCH (26-32) pg MCHC (32-36) g/dl RDW (11.5-14.0) % Plt Count (150-450) K/mm3 MPV (7.5-11.0) fl Gran % (36.0-66.0) % Eos # (Auto) (0-0.5) Absolute Lymphs (auto) (1.0-4.6) Absolute Monos (auto) (0.0-1.3) Lymphocytes % (24.0-44.0) % Monocytes % (0.0-12.0) % Eosinophils % (0.00-5.0) % Basophils % (0.0-0.4) % Absolute Granulocytes (1.4-6.9) Basophils # (0-0.4) Sodium (137-145) mmol/L Potassium (3.5-5.1) mmol/L Chloride (98-107) mmol/L Carbon Dioxide (22-30) mmol/L Anion Gap (5-15) MEQ/L BUN (7-17) mg/dL Creatinine (0.52-1.04) mg/dL Estimated GFR ML/MIN Glucose (74-106) mg/dL POC Glucometer (74 to 106) mg/dL Lactic Acid 1.1 (0.4-2.0) Calcium (8.4-10.2) mg/dL Magnesium (1.6-2.3) mg/dL Total Bilirubin (0.2-1.3) mg/dL AST (14-36) U/L ALT (0-35) U/L Alkaline Phosphatase (38-126) U/L Troponin I 0.023 (0.000-0.034) ng/mL NT-Pro-B Natriuret Pep (0-900) pg/mL Serum Total Protein (6.3-8.2) g/dL Albumin (3.5-5.0) g/dL Prealbumin (17.6-36.0) mg/dL SARS-CoV-2 (PCR) NEGATIVE (NEGATIVE) 12/03/20 12/03/20 12/03/20 Range/Units 04:18 04:18 04:18 WBC 8.6 (4.0-10.5) K/mm3 RBC 4.63 (4.1-5.4) M/mm3 Hgb 12.8 (12.0-16.0) gm/dl Hct 40.8 (35-47) % MCV 88.1 (78-100) fl MCH 27.6 (26-32) pg MCHC 31.4 L (32-36) g/dl RDW 16.5 H (11.5-14.0) % Plt Count 221 (150-450) K/mm3 MPV 12.6 H (7.5-11.0) fl Gran % 70.6 H (36.0-66.0) % Eos # (Auto) 0.11 (0-0.5) Absolute Lymphs (auto) 1.53 (1.0-4.6) Absolute Monos (auto) 0.89 (0.0-1.3) Lymphocytes % 17.7 L (24.0-44.0) % Monocytes % 10.3 (0.0-12.0) % Eosinophils % 1.3 (0.00-5.0) % Basophils % 0.1 (0.0-0.4) % Absolute Granulocytes 6.09 (1.4-6.9) Basophils # 0.01 (0-0.4) Sodium 138 (137-145) mmol/L Potassium 3.7 (3.5-5.1) mmol/L Chloride 104 (98-107) mmol/L Carbon Dioxide 23 (22-30) mmol/L Anion Gap Pending (5-15) MEQ/L BUN 17 (7-17) mg/dL Creatinine 0.69 (0.52-1.04) mg/dL Estimated GFR > 60.0 ML/MIN Glucose 101 (74-106) mg/dL POC Glucometer (74 to 106) mg/dL Lactic Acid (0.4-2.0) Calcium 8.8 (8.4-10.2) mg/dL Magnesium (1.6-2.3) mg/dL Total Bilirubin 0.60 (0.2-1.3) mg/dL AST 28 (14-36) U/L ALT 33 (0-35) U/L Alkaline Phosphatase 99 (38-126) U/L Troponin I 0.022 (0.000-0.034) ng/mL NT-Pro-B Natriuret Pep (0-900) pg/mL Serum Total Protein 6.1 L (6.3-8.2) g/dL Albumin 3.5 (3.5-5.0) g/dL Prealbumin 17.13 L (17.6-36.0) mg/dL SARS-CoV-2 (PCR) (NEGATIVE) 12/03/20 12/03/20 12/03/20 Range/Units 07:18 07:50 10:15 WBC (4.0-10.5) K/mm3 RBC (4.1-5.4) M/mm3 Hgb (12.0-16.0) gm/dl Hct (35-47) % MCV (78-100) fl MCH (26-32) pg MCHC (32-36) g/dl RDW (11.5-14.0) % Plt Count (150-450) K/mm3 MPV (7.5-11.0) fl Gran % (36.0-66.0) % Eos # (Auto) (0-0.5) Absolute Lymphs (auto) (1.0-4.6) Absolute Monos (auto) (0.0-1.3) Lymphocytes % (24.0-44.0) % Monocytes % (0.0-12.0) % Eosinophils % (0.00-5.0) % Basophils % (0.0-0.4) % Absolute Granulocytes (1.4-6.9) Basophils # (0-0.4) Sodium (137-145) mmol/L Potassium (3.5-5.1) mmol/L Chloride (98-107) mmol/L Carbon Dioxide (22-30) mmol/L Anion Gap (5-15) MEQ/L BUN (7-17) mg/dL Creatinine (0.52-1.04) mg/dL Estimated GFR ML/MIN Glucose (74-106) mg/dL POC Glucometer 112 H (74 to 106) mg/dL Lactic Acid (0.4-2.0) Calcium (8.4-10.2) mg/dL Magnesium (1.6-2.3) mg/dL Total Bilirubin (0.2-1.3) mg/dL AST (14-36) U/L ALT (0-35) U/L Alkaline Phosphatase (38-126) U/L Troponin I 0.024 0.020 (0.000-0.034) ng/mL NT-Pro-B Natriuret Pep (0-900) pg/mL Serum Total Protein (6.3-8.2) g/dL Albumin (3.5-5.0) g/dL Prealbumin (17.6-36.0) mg/dL SARS-CoV-2 (PCR) (NEGATIVE) 12/03/20 Range/Units 11:19 WBC (4.0-10.5) K/mm3 RBC (4.1-5.4) M/mm3 Hgb (12.0-16.0) gm/dl Hct (35-47) % MCV (78-100) fl MCH (26-32) pg MCHC (32-36) g/dl RDW (11.5-14.0) % Plt Count (150-450) K/mm3 MPV (7.5-11.0) fl Gran % (36.0-66.0) % Eos # (Auto) (0-0.5) Absolute Lymphs (auto) (1.0-4.6) Absolute Monos (auto) (0.0-1.3) Lymphocytes % (24.0-44.0) % Monocytes % (0.0-12.0) % Eosinophils % (0.00-5.0) % Basophils % (0.0-0.4) % Absolute Granulocytes (1.4-6.9) Basophils # (0-0.4) Sodium (137-145) mmol/L Potassium (3.5-5.1) mmol/L Chloride (98-107) mmol/L Carbon Dioxide (22-30) mmol/L Anion Gap (5-15) MEQ/L BUN (7-17) mg/dL Creatinine (0.52-1.04) mg/dL Estimated GFR ML/MIN Glucose (74-106) mg/dL POC Glucometer 115 H (74 to 106) mg/dL Lactic Acid (0.4-2.0) Calcium (8.4-10.2) mg/dL Magnesium (1.6-2.3) mg/dL Total Bilirubin (0.2-1.3) mg/dL AST (14-36) U/L ALT (0-35) U/L Alkaline Phosphatase (38-126) U/L Troponin I (0.000-0.034) ng/mL NT-Pro-B Natriuret Pep (0-900) pg/mL Serum Total Protein (6.3-8.2) g/dL Albumin (3.5-5.0) g/dL Prealbumin (17.6-36.0) mg/dL SARS-CoV-2 (PCR) (NEGATIVE) Accuchecks Date 12/03/20 Time 08:00 - Radiology Impressions Radiology Exams & Impressions: Radiology Procedures Category Date Time Status CHEST 1 VIEW (PORTABLE) Stat Exams 12/02/20 22:03 Completed 0014 RAD/CHEST 1 VIEW (PORTABLE) Indication: Short of breath. Comparison: June 18, 2018. Portable chest demonstrates new cardiomegaly, vascular congestion, pulmonary edema, and small bibasilar effusions favoring cardiac decompensation/CHF. Superimposed pneumonia not completely excluded. Again incidental CABG, osteopenia, and moderate bony degenerative changes. - Other Procedures and Tests Respiratory Therapy 12/02/20 22:39 Respiratory Therapy Assessment DAILY 12/03/20 00:58 Oxygen Nasal Cannula 2 lpm Assessment/Plan (1) CHF exacerbation Current Visit: Yes Status: Acute Qualifiers: Heart failure type: combined systolic and diastolic Qualified Code(s): I50.43 - Acute on chronic combined systolic (congestive) and diastolic (congestive) heart failure Assessment & Plan: 0014 RAD/CHEST 1 VIEW (PORTABLE) Indication: Short of breath. Comparison: June 18, 2018. Portable chest demonstrates new cardiomegaly, vascular congestion, pulmonary edema, and small bibasilar effusions favoring cardiac decompensation/CHF. Superimposed pneumonia not completely excluded. Again incidental CABG, osteopenia, and moderate bony degenerative changes. Code(s): I50.9 - HEART FAILURE, UNSPECIFIED (2) CAD (coronary artery disease) Current Visit: Yes Status: Chronic Qualifiers: Coronary Disease-Associated Artery/Lesion type: [place] artery Associated angina: without angina Code(s): I25.10 - ATHSCL HEART DISEASE OF [place] CORONARY ARTERY W/O ANG PCTRS
[2020-12-03 17:54] LABS: ANION GAP 14.7 MEQ/L (5-15)
[2020-12-03] MEDS ORDERED: Zithromax 500 MG/ 250 ML NaCl Premix 500 MG/250 ML IVPB IV SCH (22:00)
[2020-12-03] MEDS ORDERED: ROCEPHIN 1 Gm-D5w 50 ml Bag** 1 G/50 ML IVPB IV SCH (22:00)
[2020-12-04 07:52] VITALS: BP 130/58
[2020-12-04 09:21] VITALS: PULSE 77; O2SAT 94
[2020-12-04] MEDS: ZOCOR 20MG PO SCH (09:27)
[2020-12-04] MEDS: Furosemide 100mg/10 ml Vial IV SCH (09:27)
[2020-12-04] MEDS: NORVASC 5 MG PO SCH (09:27)
[2020-12-04] MEDS: Zestril 20 MG PO SCH (09:27)
[2020-12-04] MEDS: Imdur 30 MG PO SCH (09:28)
[2020-12-04] MEDS: PROTONIX 40 MG IV IV SCH (09:28)
[2020-12-04] MEDS: ENOXAPARIN SODIUM SQ SCH (09:28)
[2020-12-04] MEDS ORDERED: LISINOPRIL 20 MG PO SCH (10:00)
[2020-12-04] MEDS ORDERED: NON-FORMULARY ITEM (Atorvastatin Calcium [Atorvastatin Calcium] 80 MG) PO SCH (10:00)
--- NOTE | 2020-12-04 17:24 | PCM.DS ---
Discharge Summary Date of Admission: 12/03/20 00:55 Admitting Physician: BEATRIZ GOMES Primary Care Provider: MARCI SERNA Allergies Allergies No Known Drug Allergies Allergy (Verified 02/24/16 04:23) Hospital Summary - Hospital Course Hospital Course: Chief Complaint Diagnosis shortness of breath for 1-2 days Allergies Allergy/AdvReac Type Severity Reaction Status Date / Time No Known Drug Allergies Allergy Verified 02/24/16 04:23 Vital Signs (Last 24 hours) Temp Pulse Resp BP Pulse Ox 12/04/20 08:00 77 16 94 L 12/04/20 07:51 98.7 F 82 22 130/58 93 L 12/04/20 04:00 98.4 F 83 24 132/58 96 12/04/20 00:00 98.7 F 89 32 H 130/57 91 L 12/03/20 21:18 99.2 F 12/03/20 20:00 99.8 F 88 20 112/57 94 L Home Medications Medication Instructions Recorded Confirmed Last Taken Type Amlodipine Besylate [Norvasc] 5 mg PO DAILY 12/02/20 12/02/20 12/02/20 History Furosemide 20 mg [Lasix 20 20 mg PO DAILY 30 Days #30 tablet 12/04/20 Unknown Rx mg] Potassium Chloride 10 Meq Tab* 10 meq PO DAILY 30 Days #30 tab 12/04/20 Unknown Rx [Klor Con 10 MEQ] Current Medications Discontinued Medications Generic Name Dose Route Start Last Admin Trade Name Freq PRN Reason Stop Dose Admin Acetaminophen 650 mg 12/03/20 00:58 12/03/20 21:19 Tylenol 325 Mg PO 01/02/21 00:57 650 mg Q4H PRN PRN Administration PAIN AND/OR FEVER Albuterol/Ipratropium 3 ml 12/02/20 22:03 12/02/20 22:15 Duoneb 0.5-3 Mg/3 Ml Neb IH 12/02/20 22:04 3 ml STAT ONE Administration Albuterol/Ipratropium Confirm 12/02/20 22:22 Duoneb 0.5-3 Mg/3 Ml Neb Administered 12/02/20 22:23 Dose 3 ml IH .STK-MED ONE Albuterol/Ipratropium 3 ml 12/03/20 01:00 12/03/20 20:47 Duoneb 0.5-3 Mg/3 Ml Neb IH 01/02/21 00:59 Not Given Q6HRT TOÑO Albuterol/Ipratropium 3 ml 12/03/20 01:58 Duoneb 0.5-3 Mg/3 Ml Neb IH 01/02/21 01:57 Q4HPRN PRN SHORTNESS OF BREATH/WHEEZING Amlodipine Besylate 5 mg 12/03/20 10:00 12/04/20 09:27 Norvasc 5 Mg PO 01/02/21 09:59 5 mg DAILY TOÑO Administration Aspirin 324 mg 12/02/20 22:04 12/02/20 22:12 Baby Aspirin 81 Mg Chew PO 12/02/20 22:05 324 mg STAT ONE Administration Aspirin Confirm 12/02/20 22:08 Baby Aspirin 81 Mg Chew Administered 12/02/20 22:09 Dose 324 mg .ROUTE .STK-MED ONE Enoxaparin Sodium 40 mg 12/03/20 10:00 12/04/20 09:28 Enoxaparin Sodium SQ 01/02/21 09:59 40 mg DAILY TOÑO Administration Furosemide 60 mg 12/02/20 22:03 12/02/20 22:13 Lasix 40 Mg/4 Ml IV 12/02/20 22:04 60 mg STAT ONE Administration Furosemide Confirm 12/02/20 22:08 Lasix 40 Mg/4 Ml Administered 12/02/20 22:09 Dose 80 mg .ROUTE .STK-MED ONE Furosemide 60 mg 12/03/20 10:00 12/04/20 09:27 Furosemide 100mg/10 Ml Vial IV 01/02/21 09:59 60 mg DAILY TOÑO Administration Azithromycin 500 mg in 250 mls @ 250 mls/hr 12/02/20 23:10 12/03/20 00:22 Zithromax 500 Mg/ 250 Ml Nacl Premix IV 12/03/20 00:09 Infused STAT STA Infusion Ceftriaxone Sodium/Dextrose 2 g in 50 mls @ 100 mls/hr 12/02/20 23:10 12/03/20 00:10 Rocephin 2 Gm-D5w 50ml Bag IV 12/02/20 23:39 Infused STAT STA Infusion Azithromycin Confirm 12/02/20 23:16 Zithromax 500 Mg/ 250 Ml Nacl Premix Administered 12/02/20 23:17 Dose 500 mg in 250 mls @ ud IV .STK-MED ONE Ceftriaxone Sodium/Dextrose Confirm 12/02/20 23:16 Rocephin 2 Gm-D5w 50ml Bag Administered 12/02/20 23:17 Dose 2 g in 50 mls @ ud IV .STK-MED ONE Azithromycin 500 mg in 250 mls @ 250 mls/hr 12/03/20 22:00 12/03/20 22:02 Zithromax 500 Mg/ 250 Ml Nacl Premix IV 01/02/21 21:59 250 mls/hr QPM TOÑO Administration Ceftriaxone Sodium/Dextrose 1 g in 50 mls @ 100 mls/hr 12/03/20 22:00 12/03/20 21:19 Rocephin 1 Gm-D5w 50 Ml Bag IV 12/06/20 21:59 100 mls/hr QPM TOÑO Administration Isosorbide Mononitrate 30 mg 12/03/20 10:00 12/04/20 09:28 Imdur 30 Mg PO 01/02/21 09:59 30 mg DAILY TOÑO Administration Lisinopril 20 mg 12/03/20 10:00 12/04/20 09:27 Zestril 20 Mg PO 01/02/21 09:59 20 mg DAILY TOÑO Administration Morphine Sulfate 2 mg 12/03/20 00:58 Morphine Sulfate 2 Mg Inj IV 12/08/20 00:57 Q4H PRN PRN PAIN Nitroglycerin 1 gm 12/02/20 22:03 12/02/20 22:12 Nitro-Bid 2% Ud Packets TOP 12/02/20 22:04 1 gm STAT ONE Administration Nitroglycerin Confirm 12/02/20 22:08 Nitro-Bid 2% Ud Packets Administered 12/02/20 22:09 Dose 1 gm .ROUTE .STK-MED ONE Ondansetron HCl 4 mg 12/03/20 00:58 Zofran 4 Mg/2 Ml Vial IV 01/02/21 00:57 Q6H PRN PRN NAUSEA/VOMITING Pantoprazole Sodium 40 mg 12/03/20 10:00 12/04/20 09:28 Protonix 40 Mg Iv IV 01/02/21 09:59 40 mg Q24H10 TOÑO Administration Simvastatin 40 mg 12/03/20 10:00 12/04/20 09:27 Zocor 20mg PO 01/02/21 09:59 40 mg DAILY TOÑO Administration Zolpidem Tartrate 5 mg 12/03/20 12:27 12/03/20 21:19 Ambien 5 Mg Tablet PO 01/02/21 12:26 5 mg HS PRN PRN Administration INSOMNIA Intake & Output (Last 24 hours) 12/02/20 12/03/20 12/04/20 12/05/20 11:59 11:59 11:59 11:59 Intake Total 300 1680 Output Total 900 2550 Balance -600 -870 Weight 117 kg Microbiology Results (Last 24 hours) 12/02/20 23:48 Urine, Catheterized Urine Culture - Final NO GROWTH 12/02/20 22:28 Blood Blood Culture Gram Stain - Pending 12/02/20 22:28 Blood Blood Culture - Preliminary NO GROWTH TO DATE Laboratory Results (Last 24 hours) 12/04/20 12/03/20 12/03/20 07:25 21:21 04:18 Anion Gap 14.7 POC Glucometer 103 125 H Orders (Last 24 hours) Category Date Time Status DC [Discontinue Gonzalez Cath] ROUTINE Care 12/04/20 08:03 Active Discharge Routine Discharge 12/04/20 Ordered POCT GLUCOSE Stat Lab 12/03/20 21:21 Completed POCT GLUCOSE Stat Lab 12/04/20 07:25 Completed Azithromycin 500 mg/250 ml [Zithromax 500 MG/ 250 ML Med 12/03/20 22:00 Discontinued NaCl Premix] 500 mg in 250 ml IV QPM Ceftriaxone 1 GM/50 ML PREMIX* [ROCEPHIN 1 Gm-D5w 50 ml Med 12/03/20 22:00 Discontinued Bag] 1 g in 50 ml IV QPM Patient Care Notes (Last 24 hours) 12/04/20 10:25 Nursing Note by Karen Ascencio FAXED DISCHARGE RECORDS TO DR MCKEON 12/04/20 1003, VANE Initialized on 12/04/20 10:25 - END OF NOTE 12/04/20 10:02 Nursing Note by Cathi Carroll Patient on 2L NC this AM. O2 off and sat 91-93% at rest. Ambulated in lucas and sat 89-92%. Up in chair at present and sat remains 92%. Reveiwed DC instruction and understanding verbalizedf. Knows importance of weighing daily. Will obtain scales. Initialized on 12/04/20 10:02 - END OF NOTE 12/04/20 09:45 Case Management Note by Danielle James PATIENT CONTINUES TO DENY ANY NEW NEEDS REGARDING DC AT THIS TIME. SHE PLANS TO RETURN HOME TO HER PRIOR LEVEL OF FUNCTIONING AT TIME OF DC Initialized on 12/04/20 09:45 - END OF NOTE 12/04/20 09:21 Respiratory Note by Eli Nagy SpO2 ON ROOM AIR AT REST- 91%. Initialized on 12/04/20 09:21 - END OF NOTE - Vitals & Intake/Output Vital Signs: Vital Signs Temperature 98.7 F 12/04/20 07:51 Pulse Rate 77 12/04/20 08:00 Respiratory Rate 16 12/04/20 08:00 Blood Pressure 130/58 12/04/20 07:51 O2 Sat by Pulse Oximetry 94 L 12/04/20 08:00 Intake & Output: Intake & Output 12/02/20 12/03/20 12/04/20 12/05/20 11:59 11:59 11:59 11:59 Intake Total 300 1680 Output Total 900 2550 Balance -600 -870 Weight 117 kg - Lab Result Diagrams: 12/03/20 04:18 12/03/20 04:18 Lab Results-Last 24 Hrs: Lab Results-Last 24 Hours 12/03/20 12/03/20 12/04/20 Range/Units 04:18 21:21 07:25 Anion Gap 14.7 (5-15) MEQ/L POC Glucometer 125 H 103 (74 to 106) mg/dL Micro Results-Entire Visit: Microbiology 12/02/20 23:48 Urine Culture - Final Urine, Catheterized NO GROWTH 12/02/20 22:28 Blood Culture - Preliminary Blood NO GROWTH TO DATE Accuchecks Date 12/04/20 Date 12/03/20 Time 21:00 - Radiology Exams Ordered Rad Exams-Entire Visit: Radiology Procedures Category Date Time Status CHEST 1 VIEW (PORTABLE) Stat Exams 12/02/20 22:03 Completed - Procedures and Test Procedures and Tests throughout Hospitalization: Therapy Orders & Screens 12/02/20 22:39 Respiratory Therapy Assessment DAILY Comment: 12/03/20 00:58 Oxygen Nasal Cannula 2 lpm Comment: Discharge Exam General Appearance: no apparent distress, alert Neurologic Exam: alert, oriented x 3, cooperative, normal mood/affect, nml cerebellar function, sensation nml, No motor deficits Eye Exam: PERRL, EOMI, eyes nml inspection Ears, Nose, Throat Exam: normal ENT inspection, pharynx normal, moist mucous membranes Neck Exam: normal inspection, non-tender, supple, full range of motion Respiratory Exam: normal breath sounds, lungs clear, No respiratory distress Cardiovascular Exam: regular rate/rhythm, normal heart sounds Gastrointestinal/Abdomen Exam: soft, No tenderness, No mass Pelvic Exam: deferred Rectal Exam: deferred Back Exam: normal inspection, normal range of motion, No CVA tenderness, No vertebral tenderness Extremity Exam: normal inspection, normal range of motion Skin Exam: normal color, warm, dry Final Diagnosis/Problem List - Final Discharge Diagnosis/Problem (1) CHF exacerbation Status: Acute Priority: High Assessment & Plan: Chief Complaint Diagnosis shortness of breath for 1-2 days Allergies Allergy/AdvReac Type Severity Reaction Status Date / Time No Known Drug Allergies Allergy Verified 02/24/16 04:23 Vital Signs (Last 24 hours) Temp Pulse Resp BP Pulse Ox 12/04/20 08:00 77 16 94 L 12/04/20 07:51 98.7 F 82 22 130/58 93 L 12/04/20 04:00 98.4 F 83 24 132/58 96 12/04/20 00:00 98.7 F 89 32 H 130/57 91 L 12/03/20 21:18 99.2 F 12/03/20 20:00 99.8 F 88 20 112/57 94 L Home Medications Medication Instructions Recorded Confirmed Last Taken Type Amlodipine Besylate [Norvasc] 5 mg PO DAILY 12/02/20 12/02/20 12/02/20 History Furosemide 20 mg [Lasix 20 20 mg PO DAILY 30 Days #30 tablet 12/04/20 Unknown Rx mg] Potassium Chloride 10 Meq Tab* 10 meq PO DAILY 30 Days #30 tab 12/04/20 Unknown Rx [Klor Con 10 MEQ] Current Medications Discontinued Medications Generic Name Dose Route Start Last Admin Trade Name Freq PRN Reason Stop Dose Admin Acetaminophen 650 mg 12/03/20 00:58 12/03/20 21:19 Tylenol 325 Mg PO 01/02/21 00:57 650 mg Q4H PRN PRN Administration PAIN AND/OR FEVER Albuterol/Ipratropium 3 ml 12/02/20 22:03 12/02/20 22:15 Duoneb 0.5-3 Mg/3 Ml Neb IH 12/02/20 22:04 3 ml STAT ONE Administration Albuterol/Ipratropium Confirm 12/02/20 22:22 Duoneb 0.5-3 Mg/3 Ml Neb Administered 12/02/20 22:23 Dose 3 ml IH .STK-MED ONE Albuterol/Ipratropium 3 ml 12/03/20 01:00 12/03/20 20:47 Duoneb 0.5-3 Mg/3 Ml Neb IH 01/02/21 00:59 Not Given Q6HRT TOÑO Albuterol/Ipratropium 3 ml 12/03/20 01:58 Duoneb 0.5-3 Mg/3 Ml Neb IH 01/02/21 01:57 Q4HPRN PRN SHORTNESS OF BREATH/WHEEZING Amlodipine Besylate 5 mg 12/03/20 10:00 12/04/20 09:27 Norvasc 5 Mg PO 01/02/21 09:59 5 mg DAILY TOÑO Administration Aspirin 324 mg 12/02/20 22:04 12/02/20 22:12 Baby Aspirin 81 Mg Chew PO 12/02/20 22:05 324 mg STAT ONE Administration Aspirin Confirm 12/02/20 22:08 Baby Aspirin 81 Mg Chew Administered 12/02/20 22:09 Dose 324 mg .ROUTE .STK-MED ONE Enoxaparin Sodium 40 mg 12/03/20 10:00 12/04/20 09:28 Enoxaparin Sodium SQ 01/02/21 09:59 40 mg DAILY TOÑO Administration Furosemide 60 mg 12/02/20 22:03 12/02/20 22:13 Lasix 40 Mg/4 Ml IV 12/02/20 22:04 60 mg STAT ONE Administration Furosemide Confirm 12/02/20 22:08 Lasix 40 Mg/4 Ml Administered 12/02/20 22:09 Dose 80 mg .ROUTE .STK-MED ONE Furosemide 60 mg 12/03/20 10:00 12/04/20 09:27 Furosemide 100mg/10 Ml Vial IV 01/02/21 09:59 60 mg DAILY TOÑO Administration Azithromycin 500 mg in 250 mls @ 250 mls/hr 12/02/20 23:10 12/03/20 00:22 Zithromax 500 Mg/ 250 Ml Nacl Premix IV 12/03/20 00:09 Infused STAT STA Infusion Ceftriaxone Sodium/Dextrose 2 g in 50 mls @ 100 mls/hr 12/02/20 23:10 12/03/20 00:10 Rocephin 2 Gm-D5w 50ml Bag IV 12/02/20 23:39 Infused STAT STA Infusion Azithromycin Confirm 12/02/20 23:16 Zithromax 500 Mg/ 250 Ml Nacl Premix Administered 12/02/20 23:17 Dose 500 mg in 250 mls @ ud IV .STK-MED ONE Ceftriaxone Sodium/Dextrose Confirm 12/02/20 23:16 Rocephin 2 Gm-D5w 50ml Bag Administered 12/02/20 23:17 Dose 2 g in 50 mls @ ud IV .STK-MED ONE Azithromycin 500 mg in 250 mls @ 250 mls/hr 12/03/20 22:00 12/03/20 22:02 Zithromax 500 Mg/ 250 Ml Nacl Premix IV 01/02/21 21:59 250 mls/hr QPM TOÑO Administration Ceftriaxone Sodium/Dextrose 1 g in 50 mls @ 100 mls/hr 12/03/20 22:00 12/03/20 21:19 Rocephin 1 Gm-D5w 50 Ml Bag IV 12/06/20 21:59 100 mls/hr QPM TOÑO Administration Isosorbide Mononitrate 30 mg 12/03/20 10:00 12/04/20 09:28 Imdur 30 Mg PO 01/02/21 09:59 30 mg DAILY TOÑO Administration Lisinopril 20 mg 12/03/20 10:00 12/04/20 09:27 Zestril 20 Mg PO 01/02/21 09:59 20 mg DAILY TOÑO Administration Morphine Sulfate 2 mg 12/03/20 00:58 Morphine Sulfate 2 Mg Inj IV 12/08/20 00:57 Q4H PRN PRN PAIN Nitroglycerin 1 gm 12/02/20 22:03 12/02/20 22:12 Nitro-Bid 2% Ud Packets TOP 12/02/20 22:04 1 gm STAT ONE Administration Nitroglycerin Confirm 12/02/20 22:08 Nitro-Bid 2% Ud Packets Administered 12/02/20 22:09 Dose 1 gm .ROUTE .STK-MED ONE Ondansetron HCl 4 mg 12/03/20 00:58 Zofran 4 Mg/2 Ml Vial IV 01/02/21 00:57 Q6H PRN PRN NAUSEA/VOMITING Pantoprazole Sodium 40 mg 12/03/20 10:00 12/04/20 09:28 Protonix 40 Mg Iv IV 01/02/21 09:59 40 mg Q24H10 TOÑO Administration Simvastatin 40 mg 12/03/20 10:00 12/04/20 09:27 Zocor 20mg PO 01/02/21 09:59 40 mg DAILY TOÑO Administration Zolpidem Tartrate 5 mg 12/03/20 12:27 12/03/20 21:19 Ambien 5 Mg Tablet PO 01/02/21 12:26 5 mg HS PRN PRN Administration INSOMNIA Intake & Output (Last 24 hours) 12/02/20 12/03/20 12/04/20 12/05/20 11:59 11:59 11:59 11:59 Intake Total 300 1680 Output Total 900 2550 Balance -600 -870 Weight 117 kg Microbiology Results (Last 24 hours) 12/02/20 23:48 Urine, Catheterized Urine Culture - Final NO GROWTH 12/02/20 22:28 Blood Blood Culture Gram Stain - Pending 12/02/20 22:28 Blood Blood Culture - Preliminary NO GROWTH TO DATE Laboratory Results (Last 24 hours) 12/04/20 12/03/20 12/03/20 07:25 21:21 04:18 Anion Gap 14.7 POC Glucometer 103 125 H Orders (Last 24 hours) Category Date Time Status DC [Discontinue Gonzalez Cath] ROUTINE Care 12/04/20 08:03 Active Discharge Routine Discharge 12/04/20 Ordered POCT GLUCOSE Stat Lab 12/03/20 21:21 Completed POCT GLUCOSE Stat Lab 12/04/20 07:25 Completed Azithromycin 500 mg/250 ml [Zithromax 500 MG/ 250 ML Med 12/03/20 22:00 Discontinued NaCl Premix] 500 mg in 250 ml IV QPM Ceftriaxone 1 GM/50 ML PREMIX* [ROCEPHIN 1 Gm-D5w 50 ml Med 12/03/20 22:00 Discontinued Bag] 1 g in 50 ml IV QPM Patient Care Notes (Last 24 hours) 12/04/20 10:25 Nursing Note by Karen Ascencio FAXED DISCHARGE RECORDS TO DR MCKEON 12/04/20 Mariama3, VANE Initialized on 12/04/20 10:25 - END OF NOTE 12/04/20 10:02 Nursing Note by Robert Carrollise Patient on 2L NC this AM. O2 off and sat 91-93% at rest. Ambulated in lucas and sat 89-92%. Up in chair at present and sat remains 92%. Reveiwed DC instruction and understanding verbalizedf. Knows importance of weighing daily. Will obtain scales. Initialized on 12/04/20 10:02 - END OF NOTE 12/04/20 09:45 Case Management Note by Danielle James PATIENT CONTINUES TO DENY ANY NEW NEEDS REGARDING DC AT THIS TIME. SHE PLANS TO RETURN HOME TO HER PRIOR LEVEL OF FUNCTIONING AT TIME OF DC Initialized on 12/04/20 09:45 - END OF NOTE 12/04/20 09:21 Respiratory Note by Eli Nagy SpO2 ON ROOM AIR AT REST- 91%. Initialized on 12/04/20 09:21 - END OF NOTE Code(s): I50.9 - HEART FAILURE, UNSPECIFIED (2) CAD (coronary artery disease) Status: Chronic Code(s): I25.10 - ATHSCL HEART DISEASE OF [place] CORONARY ARTERY W/O ANG PCTRS - Discharge Disposition: Home, Self-Care Condition: Stable Prescriptions: New Potassium Chloride 10 Meq Tab* [Klor Con 10 MEQ] 10 meq PO DAILY 30 Days #30 tab Furosemide 20 mg [Lasix 20 mg] 20 mg PO DAILY 30 Days #30 tablet Continue lisinopriL [Lisinopril] 20 mg PO DAILY Isosorbide Mononitrate 30 mg [Imdur 30 MG] 30 mg PO DAILY Atorvastatin Calcium 80 mg PO DAILY Amlodipine Besylate [Norvasc] 5 mg PO DAILY Instructions: Heart Failure, Adult (DC) Follow up with: WHITLEY BINGHAM [ACTIVE STAFF] - 12/07/20 10:30 am ASHLEY MCKEON [CONSULTING PHYSICIAN] - 12/05/20 11:45 am (AT [facility]) Forms: Discharge Instructions
== END 2020-12-04 10:08 | disposition home or self-care (01) ==
LOC: ED 21:43 → MED SURG 12-03 00:55
PROVIDERS: ADMIT General Practice; ATTEND General Practice
DX: I11.0 Hypertensive heart disease with heart failure (principal); I50.9 Heart failure, unspecified; R07.9 Chest pain, unspecified; M79.89 Other specified soft tissue disorders; Z79.899 Other long term (current) drug therapy; I25.10 Atherosclerotic heart disease of native coronary artery without angina pectoris; Z20.822 Contact with and (suspected) exposure to COVID-19
CPT/HCPCS: 36000; 36415; 51702; 71045; 80053; 82947; 83605; 83735; 83880; 84134; 84484; 85025; 87040; 87086; 93005; 93041; 94640; 94760; 96360; 96374; 99285; 99291; G0378; U0003; J0456; J0696; J1650; J1940; A9270-GY

== ENCOUNTER 2020-12-05 09:42 | Emergency (ER) | payer MEDICARE ==
--- NOTE | 2020-12-05 10:19 | ERPHSYRPT ---
- History of Present Illness Time Seen by Provider: 12/05/20 10:00 Source: patient Exam Limitations: no limitations Patient Subjective Stated Complaint: pt here for increaes sob today and states she feels unsteady, was just dc for hospital yesterday for fluid on lung, Triage Nursing Assessment: pt alert, resp easy at rest, labored with excertion, face mask in place, has edema to lower legs , she states swelling is better Physician History: This is a 69-year-old white female patient whose primary care physician is Dr. Tucker and has a green hide inspector Dr. Dave and presents with shortness of breath and dizziness this morning. Patient was just seen in this emergency department on 12/02/2020 and diagnosed with CHF exacerbation. She was admitted into the hospital and discharged to home yesterday (12/04/2020). Patient has a history of hypertension, CHF, coronary artery disease, coronary artery stents. Her COVID- 19 test was negative. Patient denies abdominal pain and she denies chest pain. Her main complaints are dizziness which she describes as being unsteady as well as shortness of breath. Timing/Duration: today Severity: mild Associated Symptoms: shortness of breath, other (Unsteady in her gait), No chest pain Allergies/Adverse Reactions: No Known Drug Allergies Allergy (Verified 12/05/20 09:44) Home Medications: lisinopriL [Lisinopril] 20 mg PO DAILY 03/06/14 [History] Atorvastatin Calcium 80 mg PO DAILY 02/24/16 [History] Isosorbide Mononitrate 30 mg [Imdur 30 MG] 30 mg PO DAILY 02/24/16 [History] Amlodipine Besylate [Norvasc] 5 mg PO DAILY 12/02/20 [History] Hx Tetanus, Diphtheria Vaccination/Date Given: Yes Hx Influenza Vaccination/Date Given: Yes Hx Pneumococcal Vaccination/Date Given: Yes Immunizations Up to Date: Yes Travel Risk - International Travel Have you traveled outside of the country in past 3 weeks: No - Coronavirus Screening Are you exhibiting any of the following symptoms?: Yes Symptoms: Shortness of Breath - Vaccine Status Have you recieved a Covid-19 vaccination: Yes Physiotherapy Practice Manager: [email or web address] - Vaccination Dates Date of 2cond Vaccination (if applicable): unknown - Review of Systems Constitutional: No Symptoms Eyes: No Symptoms Ears, Nose, & Throat: No Symptoms Respiratory: Dyspnea Cardiac: No Symptoms Abdominal/Gastrointestinal: No Symptoms Genitourinary Symptoms: No Symptoms Musculoskeletal: No Symptoms Skin: No Symptoms Neurological: Dizziness (She describes as unsteadiness in her gait), Gait Changes (Unsteady) Psychological: No Symptoms Endocrine: No Symptoms Hematologic/Lymphatic: No Symptoms Immunological/Allergic: No Symptoms All Other Systems: Reviewed and Negative - Past Medical History Pertinent Past Medical History: Yes Neurological History: No Pertinent History ENT History: No Pertinent History Cardiac History: Angina, Hypertension Respiratory History: No Pertinent History Endocrine Medical History: No Pertinent History Musculoskeletal History: No Pertinent History GI Medical History: No Pertinent History History: No Pertinent History Psycho-Social History: Anxiety, Depression Female Reproductive Disorders: Fibroids - Past Surgical History Past Surgical History: Yes Neuro Surgical History: No Pertinent History Cardiac: Cardiac Catheterization, Cardiac Stent Respiratory: No Pertinent History Gastrointestinal: Cholecystectomy Genitourinary: No Pertinent History Musculoskeletal: No Pertinent History Female Surgical History: Hysterectomy - Social History Smoking Status: Never smoker Exposure to second hand smoke: No Drug Use: none Patient Lives Alone: Yes - Female History Hx Last Menstrual Period: post Hx Now: No - Nursing Vital Signs Nursing Vital Signs: Initial Vital Signs Temperature 97.2 F 12/05/20 09:43 Pulse Rate 82 12/05/20 09:43 Respiratory Rate 20 12/05/20 09:43 Blood Pressure 165/107 12/05/20 09:43 O2 Sat by Pulse Oximetry 96 12/05/20 09:43 Pain Scale Pain Intensity 0 - Physical Exam General Appearance: no apparent distress, alert, anxiety, obese Eye Exam: PERRL/EOMI, eyes nml inspection Ears, Nose, Throat Exam: normal ENT inspection, moist mucous membranes Neck Exam: normal inspection, non-tender, supple, full range of motion Respiratory Exam: normal breath sounds, lungs clear, airway intact, No chest tenderness, No respiratory distress Cardiovascular Exam: regular rate/rhythm, normal heart sounds, normal peripheral pulses Gastrointestinal/Abdomen Exam: soft, normal bowel sounds, No tenderness Pelvic Exam: not done Rectal Exam: not done Extremity Exam: normal range of motion, pelvis stable, pedal edema (Mild at the feet and ankles) Neurologic Exam: alert, oriented x 3, cooperative, drafter (cad) electrical II-XII nml as tested, normal mood/affect, nml cerebellar function, nml station & gait, sensation nml Skin Exam: normal color, warm, dry Lymphatic Exam: No adenopathy SpO2 Interpretation: normal SpO2: 96 O2 Delivery: Nasal Cannula (2 L oxygen) - Course Nursing assessment & vital signs reviewed: Yes EKG Interpreted by Me: RATE (81), Sinus Rhythm, NORMAL AXIS, Right Bundle Branch Block, NORMAL ST-T, Other (No acute ischemic changes on today's EKG. No significant change from the EKG dated 12/03/2020) Ordered Tests: Active Orders 24 hr Category Date Time Status Ditch [facility]ger STAT Care 12/05/20 10:16 Active EKG-ER Only STAT Care 12/05/20 10:15 Active IV Insertion STAT Care 12/05/20 10:15 Active Oxygen-ED Only Nasal Cannula 2 lpm Care 12/05/20 10:15 Active CHEST 1 VIEW (PORTABLE) Stat Exams 12/05/20 10:15 Completed CHEST WITH CONTRAST [CT] Stat Exams 12/05/20 11:34 Completed HEAD WITHOUT CONTRAST [CT] Stat Exams 12/05/20 10:19 Completed CBC W DIFF Stat Lab 12/05/20 10:15 Completed CMP Stat Lab 12/05/20 10:30 Completed D-DIMER QUANTITATIVE Stat Lab 12/05/20 10:30 Completed Lactic Acid Stat Lab 12/05/20 10:15 Completed Lactic Acid Stat Lab 12/05/20 12:38 Stop Req MAGNESIUM Stat Lab 12/05/20 10:30 Completed NT PRO BNP Stat Lab 12/05/20 10:30 Completed TROPONIN Q3H Lab 12/05/20 10:30 Completed TROPONIN Q3H Lab 12/05/20 13:05 Received TROPONIN Q3H Lab 12/05/20 16:15 Ordered TROPONIN Q3H Lab 12/05/20 19:15 Ordered TROPONIN Q3H Lab 12/05/20 22:15 Ordered UA W/RFX UR CULTURE Stat Lab 12/05/20 11:01 Completed Medication Summary Generic Name Dose Route Start Last Admin Trade Name Freq PRN Reason Stop Dose Admin Sodium Chloride 500 mls @ 50 mls/hr 12/05/20 11:45 12/05/20 11:37 Sodium Chloride 0.9% 500 Ml IV 01/04/21 11:44 50 mls/hr .Q10H TOÑO Administration Lab/Rad Data: Laboratory Result Diagrams 12/05/20 10:15 12/05/20 10:30 Laboratory Results 12/05/20 12/05/20 12/05/20 Range/Units 11:01 10:30 10:30 WBC (4.0-10.5) K/mm3 RBC (4.1-5.4) M/mm3 Hgb (12.0-16.0) gm/dl Hct (35-47) % MCV (78-100) fl MCH (26-32) pg MCHC (32-36) g/dl RDW (11.5-14.0) % Plt Count (150-450) K/mm3 MPV (7.5-11.0) fl Gran % (36.0-66.0) % Eos # (Auto) (0-0.5) Absolute Lymphs (auto) (1.0-4.6) Absolute Monos (auto) (0.0-1.3) Lymphocytes % (24.0-44.0) % Monocytes % (0.0-12.0) % Eosinophils % (0.00-5.0) % Basophils % (0.0-0.4) % Absolute Granulocytes (1.4-6.9) Basophils # (0-0.4) D-Dimer 1159 H* (215-500) ng/mL Sodium (137-145) mmol/L Potassium (3.5-5.1) mmol/L Chloride (98-107) mmol/L Carbon Dioxide (22-30) mmol/L Anion Gap (5-15) MEQ/L BUN (7-17) mg/dL Creatinine (0.52-1.04) mg/dL Estimated GFR ML/MIN Glucose (74-106) mg/dL Lactic Acid (0.4-2.0) Calcium (8.4-10.2) mg/dL Magnesium (1.6-2.3) mg/dL Total Bilirubin (0.2-1.3) mg/dL AST (14-36) U/L ALT (0-35) U/L Alkaline Phosphatase (38-126) U/L Troponin I 0.015 (0.000-0.034) ng/mL NT-Pro-B Natriuret Pep (0-900) pg/mL Serum Total Protein (6.3-8.2) g/dL Albumin (3.5-5.0) g/dL Urine Color YELLOW (YELLOW) Urine Appearance SLIGHTLY CLOUDY (CLEAR) Urine pH 5.0 (5-6) Ur Specific [place] 1.018 (1.005-1.025) Urine Protein NEGATIVE (Negative) Urine Ketones NEGATIVE (NEGATIVE) Urine Blood NEGATIVE (0-5) Edinson/ul Urine Nitrite NEGATIVE (NEGATIVE) Urine Bilirubin NEGATIVE (NEGATIVE) Urine Urobilinogen NEGATIVE (0-1) mg/dL Ur Leukocyte Esterase NEGATIVE (NEGATIVE) Urine WBC (Auto) 3-5 (0-5) /HPF Urine RBC (Auto) NONE (0-2) /HPF U Epithel Cells (Auto) RARE (FEW) /HPF Urine Bacteria (Auto) NONE (NEGATIVE) /HPF Urine Mucus (Auto) SLIGHT (NEGATIVE) /HPF Urine Culture Reflexed NO (NO) Urine Glucose NEGATIVE (NEGATIVE) mg/dL 12/05/20 12/05/20 12/05/20 Range/Units 10:30 10:15 10:15 WBC 6.2 (4.0-10.5) K/mm3 RBC 5.20 (4.1-5.4) M/mm3 Hgb 14.3 (12.0-16.0) gm/dl Hct 46.5 (35-47) % MCV 89.4 (78-100) fl MCH 27.5 (26-32) pg MCHC 30.8 L (32-36) g/dl RDW 16.4 H (11.5-14.0) % Plt Count 243 (150-450) K/mm3 MPV 12.0 H (7.5-11.0) fl Gran % 61.3 (36.0-66.0) % Eos # (Auto) 0.32 (0-0.5) Absolute Lymphs (auto) 1.32 (1.0-4.6) Absolute Monos (auto) 0.74 (0.0-1.3) Lymphocytes % 21.3 L (24.0-44.0) % Monocytes % 11.9 (0.0-12.0) % Eosinophils % 5.2 H (0.00-5.0) % Basophils % 0.3 (0.0-0.4) % Absolute Granulocytes 3.80 (1.4-6.9) Basophils # 0.02 (0-0.4) D-Dimer (215-500) ng/mL Sodium 142 (137-145) mmol/L Potassium 3.7 (3.5-5.1) mmol/L Chloride 103 (98-107) mmol/L Carbon Dioxide 31 H (22-30) mmol/L Anion Gap 12.0 (5-15) MEQ/L BUN 26 H (7-17) mg/dL Creatinine 0.82 (0.52-1.04) mg/dL Estimated GFR > 60.0 ML/MIN Glucose 110 H (74-106) mg/dL Lactic Acid 1.9 (0.4-2.0) Calcium 9.3 (8.4-10.2) mg/dL Magnesium 2.2 (1.6-2.3) mg/dL Total Bilirubin 0.50 (0.2-1.3) mg/dL AST 23 (14-36) U/L ALT 27 (0-35) U/L Alkaline Phosphatase 89 (38-126) U/L Troponin I (0.000-0.034) ng/mL NT-Pro-B Natriuret Pep 231 (0-900) pg/mL Serum Total Protein 6.9 (6.3-8.2) g/dL Albumin 3.8 (3.5-5.0) g/dL Urine Color (YELLOW) Urine Appearance (CLEAR) Urine pH (5-6) Ur Specific [place] (1.005-1.025) Urine Protein (Negative) Urine Ketones (NEGATIVE) Urine Blood (0-5) Edinson/ul Urine Nitrite (NEGATIVE) Urine Bilirubin (NEGATIVE) Urine Urobilinogen (0-1) mg/dL Ur Leukocyte Esterase (NEGATIVE) Urine WBC (Auto) (0-5) /HPF Urine RBC (Auto) (0-2) /HPF U Epithel Cells (Auto) (FEW) /HPF Urine Bacteria (Auto) (NEGATIVE) /HPF Urine Mucus (Auto) (NEGATIVE) /HPF Urine Culture Reflexed (NO) Urine Glucose (NEGATIVE) mg/dL - Progress Progress Note: 12/05/20 13:16 Chest x-ray shows no acute cardiopulmonary process. CAT scan of the head without contrast shows no acute intracranial abnormality. CAT scan of the chest with contrast shows no evidence of acute pulmonary embolus. There is no evidence of pulmonary infiltrate. Medical decision making: I did review this patient's work-up results with her green hide inspector, Dr. Dave. He felt that the patient was stable enough to be discharged to home. The patient currently states that she has no chest pain and her dizziness has resolved and shortness of breath has nearly completely resolved. Counseled pt/family regarding: lab results, diagnosis, need for follow-up, rad results - Departure Departure Disposition: Home Clinical Impression: Dizziness, Shortness of breath Condition: Stable Critical Care Time: No Referrals: MARCI SERNA NP [Primary Care Provider] - Additional Instructions: Continue medication as prescribed. Follow-up with your green hide inspector and primary care physician for further management.
[2020-12-05 10:43] LABS: BASOPHIL % 0.3 % (0.0-0.4); Basophil (Absolute #) 0.02 (0-0.4); Eosinophil % 5.2 % (0.00-5.0); Eosinophil (Absolute #) 0.32 (0-0.5); Hematocrit 46.5 % (35-47); Hemoglobin 14.3 gm/dl (12.0-16.0); Lymphocyte (Absolute #) 1.32 (1.0-4.6); Lymphocytes % 21.3 % (24.0-44.0); Mean Cell Volume 89.4 fl (78-100); Mean Corpuscular Hemoglobin 27.5 pg (26-32); Mean Corpuscular Hgb Concent. 30.8 g/dl (32-36); Monocyte (Absolute #) 0.74 (0.0-1.3); Monocytes % 11.9 % (0.0-12.0); Neutrophil % 61.3 % (36.0-66.0); Platelet Count 243 K/mm3 (150-450); Red Cell Distribution Width 16.4 % (11.5-14.0); White Blood Count 6.2 K/mm3 (4.0-10.5)
--- NOTE | 2020-12-05 11:02 | XRAY ---
Exam: AP upright portable chest film from 12/05/2020. Comparison: AP portable chest film from 12/02/2020. Indication: 69-year-old female with shortness of breath. Findings: The heart size appears within normal limits. Calcification of the aortic arch and mild tortuosity of the descending thoracic aorta are seen. Surgical clips and sternal wires are seen consistent with prior CABG. The third wire from the top is again noted to be broken. Prior mild vascular/interstitial congestion on 12/02/2020 has essentially resolved. Mild transverse linear plate atelectasis versus scarring is seen at the lateral left lung base. There is some focal pleural-parenchymal soft tissue density at the lateral left lung base. I'm not sure whether this is due to infiltrate or some loculated pleural fluid collection. The remainder of the left lung field appears clear. The right lung reveals minimal plate atelectasis at the dome of the right hemidiaphragm. Otherwise, the right lung field appears clear. Chronic arthritic changes are seen about the right shoulder and visualized left shoulder. Impression: 1. Prior mild diffuse bilateral vascular/interstitial congestion on 12/02/2020 appears to have essentially resolved. 2. However, there is a mild convex opacity at the lateral left lung base which could relate to a pleural-parenchymal process. Correlation with a right lateral decubitus chest film to further assess the left costophrenic angle may be helpful. 3. There also appears to be some minimal plate atelectasis versus scarring within the left lower lung field, as well as perhaps adjacent to the dome of the right hemidiaphragm. 4. Status post CABG. The third sternal wire from the top is again noted to be broken.
[2020-12-05 11:04] LABS: ALBUMIN 3.8 g/dL (3.5-5.0); ALKALINE PHOSPHATASE 89 U/L (38-126); BLOOD UREA NITROGEN 26 mg/dL (7-17); CHLORIDE 103 mmol/L (98-107); Calcium 9.3 mg/dL (8.4-10.2); Carbon Dioxide 31 mmol/L (22-30); Creatinine 1 0.82 mg/dL (0.52-1.04); EST GLOMERULAR FILTRATION RATE > 60.0 ML/MIN; Glucose 110 mg/dL (74-106); MAGNESIUM 2.2 mg/dL (1.6-2.3); NT PRO BNP 231 pg/mL (0-900); Potassium 3.7 mmol/L (3.5-5.1); SGOT/AST 23 U/L (14-36); SGPT/ALT 27 U/L (0-35); SODIUM 142 mmol/L (137-145); Total Protein 6.9 g/dL (6.3-8.2)
--- NOTE | 2020-12-05 11:17 | XRAY ---
Exam: CT of the head without IV contrast from 12/04/2020. CTDI: 53.92 mGy Comparison: CT of the head without IV contrast from 08/21/2010. Indication: Dizziness. Technique: Non-IV contrast axial images were obtained through the brain. Reconstructed coronal and sagittal images were created and reviewed. Findings: The ventricles appear within normal limits of size for age. No focal mass effect or midline shift is seen. Incidental note of bilateral basal ganglia calcification is seen. I see no acute parenchymal hemorrhage or abnormal extra-axial fluid collection. There is moderate bilateral periventricular and subcortical white matter changes, likely reflecting chronic small vessel ischemic disease. A discrete low attenuation infarct within a major cerebral or cerebellar artery distribution is not seen. The cortical sulci and sylvian fissures are mildly prominent, not inappropriate for the patient's age. The visualized posterior fossa appears unremarkable. The calvarium of the skull appears intact. The visualized paranasal sinuses are clear without air-fluid levels. The mastoid air cells reveal equivocal evidence of minimal mucosal thickening within the inferior left mastoid. No effusion is seen. Some vascular calcification is seen within the carotid siphons. Impression: 1. No acute intracranial bleed or other acute intracranial process is seen. 2. Moderate bilateral periventricular and subcortical white matter changes are seen consistent with chronic microvascular disease. A discrete low attenuation infarct is not seen. 3. There appears to be some minimal mucosal thickening within the inferior aspect of the left mastoid air cells. No effusion or bone destruction is seen.
[2020-12-05 11:33] LABS: Appearance SLIGHTLY CLOUDY (CLEAR); Bilirubin NEGATIVE (NEGATIVE); Blood NEGATIVE Ery/ul (0-5); Epithelial Cells RARE /HPF (FEW); Glucose NEGATIVE (NEGATIVE); Ketones NEGATIVE (NEGATIVE); Leukocyte Esterase NEGATIVE (NEGATIVE); Mucus SLIGHT /HPF (NEGATIVE); Nitrite NEGATIVE (NEGATIVE); Protein,Urine Dip NEGATIVE (Negative); Specific Gravity 1.018 (1.005-1.025); Urobilinogen NEGATIVE mg/dL (0-1)
[2020-12-05] MEDS ORDERED: Sodium Chloride 0.9% 500 ML 500 ML IV ONE (11:36)
[2020-12-05] MEDS ORDERED: Sodium Chloride 0.9% 500 ML 500 ML IV SCH (11:45)
--- NOTE | 2020-12-05 13:07 | XRAY ---
Exam: CT of the chest with IV contrast from 12/05/2020. Total exam DLP: 1300.64 mGy-cm Comparison: AP upright portable chest film from 12/05/[address] of the chest with IV contrast from 05/31/2017. Indication: 69-year-old female with shortness of breath, elevated d-dimer. Technique: Post-IV contrast axial images were obtained through the chest during automated injection of 100 cc of Isovue-370 contrast material using the PE protocol. Reconstructed coronal and sagittal images were created and reviewed. Findings: The pulmonary arteries enhance fairly well and reveal no filling defects to suggest clot/emboli. Vascular calcification is seen within the thoracic aorta. No aneurysm or thoracic aortic dissection is seen. I again see evidence of prior CABG. The heart size appears borderline enlarged. No pericardial effusion is seen. No abnormal mediastinal or perihilar lymphadenopathy is seen. Mild linear atelectasis/scarring is seen at the lateral left lung base and posterior medial pleural margin and posterior lung sulcus of the right lung base. I believe there is some bronchiectasis at the posterior medial right lung base. No posterior pleural fluid is seen. On the sagittal images, there is moderate partial eventration of a portion of the lateral aspect of the left hemidiaphragm. It appears the density seen at the lateral left lung base on earlier plain film from today relates to epicardial fat and some linear scarring/atelectasis rather than a loculated pleural fluid collection or air space infiltrate. The remainder of the lung marroquin appears clear. I believe there is some mild emphysematous changes within the upper lung marroquin There is a 4 mm soft tissue nodule at the anterior left upper lung field on axial image #194. I believe this can be seen on axial images #96 and #97 from 05/31/2017. No pneumothorax is evident. I again see a 2.3 cm in diameter hepatic cyst within the anterior aspect of the right hepatic lobe representing no change. There is a suggestion of some generalized hepatic steatosis. Surgical clips consistent with prior cholecystectomy are noted within the right upper quadrant. The adrenal glands appear grossly unremarkable. No other significant abnormality is seen within the visualized upper abdomen. The skeleton reveals moderate diffuse thoracic spondylosis. No acute fracture or aggressive bone lesion is seen. Impression: 1. I see no evidence of acute pulmonary embolus. 2. Borderline cardiomegaly without evidence of pericardial effusion. The patient is status post CABG. 3. Mild scattered linear plate atelectasis versus scarring is seen at both lung bases. There is also suggestion of some bronchiectasis at the posterior medial right lung base, as well as partial eventration of the lateral aspect of the left hemidiaphragm on the sagittal images. No underlying infiltrate or loculated pleural fluid collection is seen. The density seen in the projection of the lateral left lung base on today's plain chest film appears to be due to a combination of epicardial fat and linear scarring/plate atelectasis. 4. Hepatic steatosis, hepatic cyst at the anterior right hepatic lobe, and evidence of prior cholecystectomy are seen. 5. On axial image #194, there is a 4 mm soft tissue lung nodule within the anterior left upper lung field which I believe is similar to axial images #96 and #97 from 05/31/2017. 6. I believe there is some mild emphysematous changes within the upper lobes.
[2020-12-05 13:52] VITALS: BP 159/78; PULSE 80; O2SAT 95
== END 2020-12-05 14:08 | disposition home or self-care (01) ==
LOC: ED 09:42
DX: R42 Dizziness and giddiness (principal); R06.02 Shortness of breath; I50.9 Heart failure, unspecified; I10 Essential (primary) hypertension; I25.10 Atherosclerotic heart disease of native coronary artery without angina pectoris; Z98.61 Coronary angioplasty status; Z79.899 Other long term (current) drug therapy
CPT/HCPCS: 36000; 36415; 70450; 71045; 71260; 80053; 81001; 83605; 83735; 83880; 84484; 85025; 85379; 93005; 93041; 96360; 96361; 99284

== ENCOUNTER 2021-11-19 13:20 | Observation (INO) | payer MEDICARE ==
[2021-11-19] MEDS ORDERED: Sodium Chloride 0.9% 1000 ML 1,000 ML ONE (14:09)
[2021-11-19] MEDS ORDERED: Sodium Chloride 0.9% 1000 ML 1,000 ML IV SCH (14:15)
--- NOTE | 2021-11-19 14:26 | XRAY ---
Indication: Productive cough. Pneumonia. Comparison: December 05, 2020 Portable chest demonstrates clearing of previous left base pleural parenchymal opacity with mild residual. Remaining heart and lungs unremarkable again with CABG. Bony thorax intact again with osteopenia and degenerative changes. No new abnormalities.
[2021-11-19 14:33] LABS: Absolute Neutrophil Ct (ANC) 4.98 x10^3/uL (1.4-6.9); Basophil (Absolute #) 0.05 x10^3/uL (0-0.4); Eosinophil % 1.7 % (0.00-5.0); Eosinophil (Absolute #) 0.13 x10^3/uL (0-0.5); Hemoglobin 15.1 g/dL (12.0-16.0); Lymphocyte (Absolute #) 2.09 x10^3/uL (1.0-4.6); Lymphocytes % 26.8 % (24.0-44.0); Mean Cell Volume 90.4 fL (78-100); Mean Corpuscular Hgb Concent. 32.1 g/dL (32-36); Mean Platelet Volume 11.7 fL (7.5-11.0); Monocyte (Absolute #) 0.51 x10^3/uL (0.0-1.3); Monocytes % 6.5 % (0.0-12.0); Platelet Count 259 x10^3/uL (150-450); Red Cell Distribution Width 14.5 % (11.5-14.0); White Blood Count 7.8 x10^3/uL (4.0-10.5)
[2021-11-19 15:22] LABS: ALBUMIN 4.1 g/dL (3.5-5.0); ALKALINE PHOSPHATASE 116 U/L (38-126); ANION GAP 11.9 MEQ/L (5-15); BLOOD UREA NITROGEN 17 mg/dL (7-17); CHLORIDE 104 mmol/L (98-107); Calcium 9.1 mg/dL (8.4-10.2); Carbon Dioxide 26 mmol/L (22-30); Creatinine 1 0.66 mg/dL (0.52-1.04); EST GLOMERULAR FILTRATION RATE > 60.0 ML/MIN; Glucose 101 mg/dL (74-106); Potassium 3.6 mmol/L (3.5-5.1); SGOT/AST 34 U/L (14-36); SGPT/ALT 33 U/L (0-35); SODIUM 138 mmol/L (137-145); Total Protein 7.3 g/dL (6.3-8.2)
[2021-11-19 15:37] LABS: INFLUENZA A NEGATIVE (NEGATIVE); INFLUENZA B NEGATIVE (NEGATIVE); RESPIRATORY SYNCTIAL VIRUS NEGATIVE (Negative); SARS-CoV-2 Xpert Express NEGATIVE (NEGATIVE)
--- NOTE | 2021-11-19 15:52 | ERPHSYRPT ---
- History of Present Illness Time Seen by Provider: 11/19/21 13:30 Source: patient Exam Limitations: no limitations Patient Subjective Stated Complaint: pt here for sob for 2 weeks, fever couple days ago, headache, Triage Nursing Assessment: pt alert, arrived per wc, resp labored with movement, skin w/d/p, lower legs swollen, worse last 2 weeks, no cough, Physician History: P 70-year-old female presents to our ED for evaluation of shortness of breath and chest pain ongoing for approximately 2 weeks. Patient has a history of congestive heart failure and 3 cardiac stents. Stents were placed approximately 5 years ago per patient. Patient also states bilateral extremities have been swelling. Patient symptoms are progressive. Symptoms are moderate in intensity. No specific worsening or improving factors. No associated chest pain. No nausea vomiting or diaphoresis. Patient voices no other complaints or concerns at this time. Timing/Duration: week(s) (2 weeks) Severity: moderate Modifying Factors: Improves With: nothing Associated Symptoms: denies symptoms Allergies/Adverse Reactions: No Known Drug Allergies Allergy (Verified 11/19/21 13:28) Home Medications: lisinopriL [Lisinopril] 20 mg PO BID 03/06/14 [History] Atorvastatin Calcium 80 mg PO DAILY 02/24/16 [History] Albuterol Sulfate [Proventil Hfa] 2 puffs QID PRN 11/19/21 [History] Furosemide 20 mg [Lasix 20 mg] 20 mg PO BID 11/19/21 [History] Metoprolol Tartrate 25 mg [Lopressor 25MG Tab] 25 mg PO BID 11/19/21 [History] Nitroglycerin 0.4 mg Tablet [Nitrostat 0.4 MG Tablet] 0.4 mg PO UD 11/19/21 [History] Potassium Chloride Tab* [Klor Con] 10 meq PO BID 11/19/21 [History] Hx Tetanus, Diphtheria Vaccination/Date Given: Yes Hx Influenza Vaccination/Date Given: Yes Hx Pneumococcal Vaccination/Date Given: Yes Immunizations Up to Date: Yes Travel Risk - International Travel Have you traveled outside of the country in past 3 weeks: No - Coronavirus Screening Are you exhibiting any of the following symptoms?: Yes Symptoms: Fever, Shortness of Breath, Headaches/Body Aches/Fatigue Close contact with a COVID-19 positive Pt in past 14-21 Days: No - Vaccine Status Have you recieved a Covid-19 vaccination: Yes 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[employer] - Vaccination Dates Date of 2cond Vaccination (if applicable): unknown - Review of Systems Constitutional: No Symptoms, No Fever, No Chills Eyes: No Symptoms Ears, Nose, & Throat: No Symptoms Respiratory: No Symptoms, No Cough, No Dyspnea Cardiac: No Symptoms, No Chest Pain, No Edema, No Syncope Abdominal/Gastrointestinal: No Symptoms, No Abdominal Pain, No Nausea, No Vomiting, No Diarrhea Genitourinary Symptoms: No Symptoms, No Dysuria Musculoskeletal: No Symptoms, No Back Pain, No Neck Pain Skin: No Symptoms, No Rash Neurological: No Symptoms, No Dizziness, No Focal Weakness, No Sensory Changes Psychological: No Symptoms Endocrine: No Symptoms Hematologic/Lymphatic: No Symptoms Immunological/Allergic: No Symptoms All Other Systems: Reviewed and Negative - Past Medical History Pertinent Past Medical History: Yes Neurological History: No Pertinent History ENT History: No Pertinent History Cardiac History: Angina, Coronary Artery Disease, Hypertension, Myocardial Infarction (MT) Respiratory History: No Pertinent History Endocrine Medical History: No Pertinent History Musculoskeletal History: No Pertinent History GI Medical History: No Pertinent History History: No Pertinent History Psycho-Social History: Anxiety, Depression Female Reproductive Disorders: Fibroids - Past Surgical History Past Surgical History: Yes Neuro Surgical History: No Pertinent History Cardiac: CABG, Cardiac Catheterization, Cardiac Stent Respiratory: No Pertinent History Gastrointestinal: Cholecystectomy Genitourinary: No Pertinent History Musculoskeletal: No Pertinent History Female Surgical History: Hysterectomy - Social History Smoking Status: Never smoker Exposure to second hand smoke: No Drug Use: none Patient Lives Alone: Yes - Nursing Vital Signs Nursing Vital Signs: Initial Vital Signs Temperature 98.6 F 11/19/21 13:21 Pulse Rate 83 11/19/21 13:21 Respiratory Rate 24 11/19/21 13:21 Blood Pressure 170/87 11/19/21 13:21 O2 Sat by Pulse Oximetry 96 11/19/21 13:21 Pain Scale Pain Intensity 0 - Physical Exam General Appearance: no apparent distress, alert Eye Exam: PERRL/EOMI, eyes nml inspection Ears, Nose, Throat Exam: normal ENT inspection, TMs normal, pharynx normal, moist mucous membranes Neck Exam: normal inspection, non-tender, supple, full range of motion Respiratory Exam: normal breath sounds, lungs clear, airway intact, No respiratory distress Cardiovascular Exam: regular rate/rhythm, normal heart sounds, normal peripheral pulses Gastrointestinal/Abdomen Exam: soft, normal bowel sounds, No tenderness, No mass Back Exam: normal inspection, normal range of motion, No CVA tenderness, No vertebral tenderness Extremity Exam: normal inspection, normal range of motion, pelvis stable Neurologic Exam: alert, oriented x 3, cooperative, normal mood/affect, nml cerebellar function, nml station & gait, sensation nml, No motor deficits Skin Exam: normal color, warm, dry, No rash Lymphatic Exam: No adenopathy SpO2 Interpretation: normal SpO2: 98 O2 Delivery: Room Air - Course Nursing assessment & vital signs reviewed: Yes EKG Interpreted by Me: RATE (79), Sinus Rhythm, NORMAL AXIS, NORMAL INTERVALS, Right Bundle Branch Block - Radiology Exams Chest X-ray Interpretation: Teleradiologist Report (Negative chest x-ray) Ordered Tests: Active Orders 24 hr Category Date Time Status Bedrest with BRP/BSC ROUTINE Activity 11/19/21 18:26 Active Insole Presser STAT Care 11/19/21 14:02 Completed Code Status Order ROUTINE Care 11/19/21 18:26 Active EKG-ER Only STAT Care 11/19/21 14:01 Completed IV Care Q6H Care 11/19/21 18:26 Active IV Insertion STAT Care 11/19/21 14:01 Completed Implement Chest Pain Pathway ROUTINE Care 11/19/21 18:[address] in Observation ROUTINE Care 11/19/21 18:26 Active Pulse Oximetry (ED) STAT Care 11/19/21 14:01 Completed [place] ROUTINE Care 11/19/21 18:26 Active Telemetry q6h Care 11/19/21 18:26 Active Weight,Daily 0600 Care 11/19/21 18:26 Active Consistent Carbohydrate Diet 1800 Calorie Diet 11/20/21 Breakfast Active CHEST 1 VIEW (PORTABLE) Stat Exams 11/19/21 14:02 Completed BLOOD CULTURE Stat Lab 11/19/21 14:25 Received CBC W DIFF Stat Lab 11/19/21 14:01 Completed CMP Stat Lab 11/19/21 14:25 Completed LIPID PROFILE AM.LAB Lab 11/20/21 02:45 Completed NT PRO BNP Stat Lab 11/19/21 14:25 Completed TROPONIN Q4H Lab 11/19/21 16:30 Completed TROPONIN Q4H Lab 11/19/21 20:45 Completed TROPONIN Q4H Lab 11/20/21 00:45 Completed TROPONIN Q4H Lab 11/20/21 02:45 Completed UA W/RFX CULTURE Stat Lab 11/19/21 14:11 Ordered Medication Summary Generic Name Dose Route Start Last Admin Trade Name Harsha PRN Reason Stop Dose Admin Acetaminophen 650 mg 11/19/21 18:26 Acetaminophen 325 Mg Tablet PO 12/19/21 18:25 Q4H PRN PRN PAIN AND/OR FEVER Al Hydrox/Mg Hydrox/Simethicone 30 ml 11/19/21 18:26 Mag Hydrox/Al Hydrox/Simeth 30 Ml Udcup PO 12/19/21 18:25 Q4H PRN PRN INDIGESTION Furosemide 20 mg 11/19/21 22:00 11/19/21 22:00 Furosemide 20 Mg Tablet PO 12/19/21 21:59 Not Given BID TOÑO Lisinopril 20 mg 11/19/21 22:00 11/19/21 21:57 Lisinopril 20 Mg Tablet PO 12/19/21 21:59 20 mg BID TOÑO Administration Magnesium Hydroxide 30 - 60 ml 11/19/21 18:26 Magnesium Hydroxide 30 Ml Udcup PO 12/19/21 18:25 QDP PRN CONSTIPATION Metoprolol Tartrate 25 mg 11/19/21 22:00 11/19/21 21:58 Metoprolol Tartrate 25 Mg Tab PO 12/19/21 21:59 25 mg BID TOÑO Administration Ondansetron HCl 4 mg 11/19/21 18:26 11/19/21 22:11 Ondansetron Hcl 4 Mg/2 Ml Vial IV 12/19/21 18:25 4 mg Q4H PRN PRN Administration NAUSEA/VOMITING Potassium Chloride 10 meq 11/19/21 22:00 11/19/21 21:57 Potassium Chloride Tab 10 Meq Tab PO 12/19/21 21:59 10 meq BID TOÑO Administration Senna/Docusate Sodium 2 udtab 11/19/21 18:26 Senna/Docusate Sodium 1 Udtab Tablet PO 12/19/21 18:25 BID PRN PRN CONSTIPATION Discontinued Medications Generic Name Dose Route Start Last Admin Trade Name Harsha PRN Reason Stop Dose Admin Sodium Chloride 1,000 mls @ 50 mls/hr 11/19/21 14:15 11/19/21 14:17 Sodium Chloride 0.9% 1000 Ml IV 12/19/21 14:14 50 mls/hr .Q20H TOÑO Administration Sodium Chloride Confirm 11/19/21 14:09 Sodium Chloride 0.9% 1000 Ml Administered 11/19/21 14:10 Dose 1,000 mls @ ud .ROUTE .STK-MED ONE Lab/Rad Data: Laboratory Result Diagrams 11/19/21 14:01 11/19/21 14:25 Laboratory Results 11/19/21 11/19/21 11/19/21 Range/Units 16:30 15:00 14:25 WBC (4.0-10.5) x10^3/uL RBC (4.1-5.4) x10^6/uL Hgb (12.0-16.0) g/dL Hct (35-47) % MCV (78-100) fL MCH (26-32) pg MCHC (32-36) g/dL RDW (11.5-14.0) % Plt Count (150-450) x10^3/uL MPV (7.5-11.0) fL Gran % (36.0-66.0) % Immature Gran % (Auto) (0.00-0.4) % Nucleat RBC Rel Count (0.00-0.1) % Eos # (Auto) (0-0.5) x10^3/uL Immature Gran # (Auto) (0.00-0.03) x10^3u/L Absolute Lymphs (auto) (1.0-4.6) x10^3/uL Absolute Monos (auto) (0.0-1.3) x10^3/uL Absolute Nucleated RBC (0.00-0.01) x10^3u/L Lymphocytes % (24.0-44.0) % Monocytes % (0.0-12.0) % Eosinophils % (0.00-5.0) % Basophils % (0.0-0.4) % Absolute Granulocytes (1.4-6.9) x10^3/uL Basophils # (0-0.4) x10^3/uL Sodium (137-145) mmol/L Potassium (3.5-5.1) mmol/L Chloride (98-107) mmol/L Carbon Dioxide (22-30) mmol/L Anion Gap (5-15) MEQ/L BUN (7-17) mg/dL Creatinine (0.52-1.04) mg/dL Estimated GFR ML/MIN Glucose (74-106) mg/dL Calcium (8.4-10.2) mg/dL Total Bilirubin (0.2-1.3) mg/dL AST (14-36) U/L ALT (0-35) U/L Alkaline Phosphatase (38-126) U/L Troponin I < 0.012 (0.000-0.034) ng/mL NT-Pro-B Natriuret Pep 267 (0-900) pg/mL Serum Total Protein (6.3-8.2) g/dL Albumin (3.5-5.0) g/dL Influenza Type A Ag NEGATIVE (NEGATIVE) Influenza Type B Ag NEGATIVE (NEGATIVE) RSV (PCR) NEGATIVE (Negative) SARS-CoV-2 (PCR) NEGATIVE (NEGATIVE) 11/19/21 11/19/21 Range/Units 14:25 14:01 WBC 7.8 (4.0-10.5) x10^3/uL RBC 5.20 (4.1-5.4) x10^6/uL Hgb 15.1 (12.0-16.0) g/dL Hct 47.0 (35-47) % MCV 90.4 (78-100) fL MCH 29.0 (26-32) pg MCHC 32.1 (32-36) g/dL RDW 14.5 H (11.5-14.0) % Plt Count 259 (150-450) x10^3/uL MPV 11.7 H (7.5-11.0) fL Gran % 64.0 (36.0-66.0) % Immature Gran % (Auto) 0.4 (0.00-0.4) % Nucleat RBC Rel Count 0.0 (0.00-0.1) % Eos # (Auto) 0.13 (0-0.5) x10^3/uL Immature Gran # (Auto) 0.03 (0.00-0.03) x10^3u/L Absolute Lymphs (auto) 2.09 (1.0-4.6) x10^3/uL Absolute Monos (auto) 0.51 (0.0-1.3) x10^3/uL Absolute Nucleated RBC 0.00 (0.00-0.01) x10^3u/L Lymphocytes % 26.8 (24.0-44.0) % Monocytes % 6.5 (0.0-12.0) % Eosinophils % 1.7 (0.00-5.0) % Basophils % 0.6 (0.0-0.4) % Absolute Granulocytes 4.98 (1.4-6.9) x10^3/uL Basophils # 0.05 (0-0.4) x10^3/uL Sodium 138 (137-145) mmol/L Potassium 3.6 (3.5-5.1) mmol/L Chloride 104 (98-107) mmol/L Carbon Dioxide 26 (22-30) mmol/L Anion Gap 11.9 (5-15) MEQ/L BUN 17 (7-17) mg/dL Creatinine 0.66 (0.52-1.04) mg/dL Estimated GFR > 60.0 ML/MIN Glucose 101 (74-106) mg/dL Calcium 9.1 (8.4-10.2) mg/dL Total Bilirubin 0.60 (0.2-1.3) mg/dL AST 34 (14-36) U/L ALT 33 (0-35) U/L Alkaline Phosphatase 116 (38-126) U/L Troponin I (0.000-0.034) ng/mL NT-Pro-B Natriuret Pep (0-900) pg/mL Serum Total Protein 7.3 (6.3-8.2) g/dL Albumin 4.1 (3.5-5.0) g/dL Influenza Type A Ag (NEGATIVE) Influenza Type B Ag (NEGATIVE) RSV (PCR) (Negative) SARS-CoV-2 (PCR) (NEGATIVE) - Progress Progress: improved Progress Note: 70-year-old female presents to our ED for evaluation of chest pain shortness of breath and leg swelling. Work-up essentially nonremarkable at this point however in light of patient's risk factors history of CHF and cardiac stents patient will be admitted for cardiac rule out. Case discussed with Dr. Bustillo who accepts admission to observation. Plan of care discussed with patient. She agrees to admission [facility] for further evaluation and treatment Portions of this note were created with voice recognition technology. There may be grammatical, spelling, punctuation or sound alike errors 11/20/21 03:[address] Thania Will see patient in: hospital (observation) Counseled pt/family regarding: lab results, diagnosis, rad results - Departure Departure Disposition: Observation Clinical Impression: ACS (acute coronary syndrome), Chest pain, Leg swelling, Shortness of breath Condition: Stable Critical Care Time: No
[2021-11-19] MEDS ORDERED: MAALOX ES 30 ML UNIT DOSE PO PRN (18:26)
[2021-11-19] MEDS ORDERED: Senokot-S Tablet PO PRN (18:26)
[2021-11-19] MEDS ORDERED: MILK OF MAGNESIA 30 ML PO PRN (18:26)
[2021-11-19] MEDS ORDERED: TYLENOL 325 MG PO PRN (18:26)
[2021-11-19] MEDS ORDERED: Zofran 4 MG/2 ML VIAL IV PRN (18:26)
[2021-11-19] MEDS ORDERED: FLUZONE HIGH-DOSE QUAD 2022-23 IM ONE (18:41)
[2021-11-19] MEDS: Zestril 20 MG PO SCH (21:57)
[2021-11-19] MEDS: Klor Con PO SCH (21:57)
[2021-11-19] MEDS: LASIX 20 MG PO SCH ×2 (21:57→22:00)
[2021-11-19] MEDS: Lopressor 25MG Tab PO SCH (21:58)
[2021-11-20 03:10] LABS: Risk Ratio 2.5
[2021-11-20 08:09] VITALS: BP 149/84; PULSE 73; O2SAT 94
--- NOTE | 2021-11-20 08:42 | PCM.SSS ---
History of Present Illness - Chief Complaint Chief Complaint: ACS, SOB History of Present Illness: is a 70 year old female pt of Dr. Tucker with PMHx CHF, CAD with stents, HTN, hx VT, anxeity, depression, DM (not on meds), and hx cholycestectomy and hysterectomy who was admitted through ER with CP to r/o VT. Pt started having temperature at home (unsure how high), was wobbly and "didn't feel right." She had diarrhea x 1 week, watery (still present). Had CP off and on, L substernal, 7/10 pressure with ache/sharp pain rad to L shoulder, with diaphoresis and without palpitations. Had some random SOB, but none currently. Has chronic bilat LE edema, which has been increased recently. In ER, troponin neg, EKG nonacute. Pt admitted for rule out VT. - Review of Systems Constitutional: Fever (subjective, unsure how high), Fatigue Ears, Nose, & Throat: Ear Pain (on L), Nose Congestion Respiratory: Short Of Breath Cardiac: Chest Pain, Edema, Other (diaphoresis) Abdominal/Gastrointestinal: Diarrhea Psychological: Other (no TOB abuse), No Alcohol Abuse, No Drug Abuse All Other Systems: Reviewed and Negative Medications & Allergies Home Medications: Home Medication List Atorvastatin Calcium 80 mg PO DAILY 02/24/16 [History Confirmed 11/19/21] Albuterol Sulfate [Proventil Hfa] 2 puffs QID PRN 11/19/21 [History Confirmed 11/19/21] Furosemide 20 mg [Lasix 20 mg] 20 mg PO BID 11/19/21 [History Confirmed 11/19/21] Metoprolol Tartrate 25 mg [Lopressor 25MG Tab] 25 mg PO BID 11/19/21 [History Confirmed 11/19/21] Nitroglycerin 0.4 mg Tablet [Nitrostat 0.4 MG Tablet] 0.4 mg PO UD 11/19/21 [History Confirmed 11/19/21] Potassium Chloride Tab* [Klor Con] 10 meq PO BID 11/19/21 [History Confirmed 11/19/21] Lisinopril 20 mg [Zestril 20 MG] 20 mg PO BID #60 tablet 11/20/21 [Rx] Allergies/Adverse Reactions: Allergies Allergy/AdvReac Type Severity Reaction Status Date / Time No Known Drug Allergies Allergy Verified 11/19/21 13:28 - Past Medical History Past Medical History: Yes Neurological History: No Pertinent History ENT History: No Pertinent History Cardiac History: Angina, Coronary Artery Disease, Hypertension, Myocardial Infarction (VT) Respiratory History: No Pertinent History Endocrine Medical History: No Pertinent History Musculoskelatal History: No Pertinent History GI Medical History: No Pertinent History History: No Pertinent History Pyscho-Social History: Anxiety, Depression Reproductive Disorders: Fibroids - Past Surgical History Past Surgical History: Yes Neuro Surgical History: No Pertinent History Cardiac History: CABG, Cardiac Catheterization, Cardiac Stent Respiratory Surgery: No Pertinent History GI Surgical History: Cholecystectomy Genitourinary Surgical Hx: No Pertinent History Musculskeletal Surgical Hx: No Pertinent History Female Surgical History: Hysterectomy - Social History Smoking Status: Never smoker Exposure to second hand smoke: No Alcohol: None Drug Use: none - Physical Exam Vital Signs: Vital Signs - 24 hr Temp Pulse Resp BP BP Pulse Ox 11/20/21 08:00 97.5 F 73 17 149/84 94 L 11/20/21 04:01 98 11/20/21 04:00 97.3 F 89 18 168/71 94 L 11/20/21 00:00 97.5 F 65 18 135/73 94 L 11/19/21 21:40 97.1 F 73 18 170/74 96 11/19/21 20:00 96 11/19/21 19:57 97.1 F 73 18 170/74 96 11/19/21 18:58 97.8 F 80 20 154/70 96 11/19/21 16:32 81 162/89 96 11/19/21 14:11 18 98 11/19/21 14:07 99 11/19/21 13:21 98.6 F 83 24 170/87 96 General Appearance: no apparent distress, alert, obese Neurologic Exam: oriented x 3, cooperative Eye Exam: eyes nml inspection Ears, Nose, Throat Exam: pharynx normal, moist mucous membranes Neck Exam: normal inspection, non-tender, No lymphadenopathy, No thyromegaly Respiratory Exam: normal breath sounds, crackles/rales (slight, bilat bases), No rhonchi, No wheezing Cardiovascular Exam: regular rate/rhythm, normal heart sounds, No murmur Gastrointestinal/Abdomen Exam: soft, normal bowel sounds, No tenderness, No distention, No mass, No guarding, No rebound Back Exam: normal inspection, No CVA tenderness, No rash Extremity Exam: swelling (non pitting, bilat LE) Skin Exam: normal color, warm, dry, No rash Results - Labs Lab/Micro Results: Lab Results-Last 24 Hours 11/19/21 11/19/21 11/19/21 Range/Units 14:01 14:25 14:25 WBC 7.8 (4.0-10.5) x10^3/uL RBC 5.20 (4.1-5.4) x10^6/uL Hgb 15.1 (12.0-16.0) g/dL Hct 47.0 (35-47) % MCV 90.4 (78-100) fL MCH 29.0 (26-32) pg MCHC 32.1 (32-36) g/dL RDW 14.5 H (11.5-14.0) % Plt Count 259 (150-450) x10^3/uL MPV 11.7 H (7.5-11.0) fL Gran % 64.0 (36.0-66.0) % Immature Gran % (Auto) 0.4 (0.00-0.4) % Nucleat RBC Rel Count 0.0 (0.00-0.1) % Eos # (Auto) 0.13 (0-0.5) x10^3/uL Immature Gran # (Auto) 0.03 (0.00-0.03) x10^3u/L Absolute Lymphs (auto) 2.09 (1.0-4.6) x10^3/uL Absolute Monos (auto) 0.51 (0.0-1.3) x10^3/uL Absolute Nucleated RBC 0.00 (0.00-0.01) x10^3u/L Lymphocytes % 26.8 (24.0-44.0) % Monocytes % 6.5 (0.0-12.0) % Eosinophils % 1.7 (0.00-5.0) % Basophils % 0.6 (0.0-0.4) % Absolute Granulocytes 4.98 (1.4-6.9) x10^3/uL Basophils # 0.05 (0-0.4) x10^3/uL Sodium 138 (137-145) mmol/L Potassium 3.6 (3.5-5.1) mmol/L Chloride 104 (98-107) mmol/L Carbon Dioxide 26 (22-30) mmol/L Anion Gap 11.9 (5-15) MEQ/L BUN 17 (7-17) mg/dL Creatinine 0.66 (0.52-1.04) mg/dL Estimated GFR > 60.0 ML/MIN Glucose 101 (74-106) mg/dL Calcium 9.1 (8.4-10.2) mg/dL Total Bilirubin 0.60 (0.2-1.3) mg/dL AST 34 (14-36) U/L ALT 33 (0-35) U/L Alkaline Phosphatase 116 (38-126) U/L Troponin I (0.000-0.034) ng/mL NT-Pro-B Natriuret Pep 267 (0-900) pg/mL Serum Total Protein 7.3 (6.3-8.2) g/dL Albumin 4.1 (3.5-5.0) g/dL Triglycerides (30-150) mg/dL Cholesterol (50-200) mg/dL LDL Cholesterol (30-100) mg/dL HDL Cholesterol (40-60) mg/dL Heart Disease Risk Ratio Influenza Type A Ag (NEGATIVE) Influenza Type B Ag (NEGATIVE) RSV (PCR) (Negative) SARS-CoV-2 (PCR) (NEGATIVE) 11/19/21 11/19/21 11/19/21 Range/Units 15:00 16:30 20:45 WBC (4.0-10.5) x10^3/uL RBC (4.1-5.4) x10^6/uL Hgb (12.0-16.0) g/dL Hct (35-47) % MCV (78-100) fL MCH (26-32) pg MCHC (32-36) g/dL RDW (11.5-14.0) % Plt Count (150-450) x10^3/uL MPV (7.5-11.0) fL Gran % (36.0-66.0) % Immature Gran % (Auto) (0.00-0.4) % Nucleat RBC Rel Count (0.00-0.1) % Eos # (Auto) (0-0.5) x10^3/uL Immature Gran # (Auto) (0.00-0.03) x10^3u/L Absolute Lymphs (auto) (1.0-4.6) x10^3/uL Absolute Monos (auto) (0.0-1.3) x10^3/uL Absolute Nucleated RBC (0.00-0.01) x10^3u/L Lymphocytes % (24.0-44.0) % Monocytes % (0.0-12.0) % Eosinophils % (0.00-5.0) % Basophils % (0.0-0.4) % Absolute Granulocytes (1.4-6.9) x10^3/uL Basophils # (0-0.4) x10^3/uL Sodium (137-145) mmol/L Potassium (3.5-5.1) mmol/L Chloride (98-107) mmol/L Carbon Dioxide (22-30) mmol/L Anion Gap (5-15) MEQ/L BUN (7-17) mg/dL Creatinine (0.52-1.04) mg/dL Estimated GFR ML/MIN Glucose (74-106) mg/dL Calcium (8.4-10.2) mg/dL Total Bilirubin (0.2-1.3) mg/dL AST (14-36) U/L ALT (0-35) U/L Alkaline Phosphatase (38-126) U/L Troponin I < 0.012 < 0.012 (0.000-0.034) ng/mL NT-Pro-B Natriuret Pep (0-900) pg/mL Serum Total Protein (6.3-8.2) g/dL Albumin (3.5-5.0) g/dL Triglycerides (30-150) mg/dL Cholesterol (50-200) mg/dL LDL Cholesterol (30-100) mg/dL HDL Cholesterol (40-60) mg/dL Heart Disease Risk Ratio Influenza Type A Ag NEGATIVE (NEGATIVE) Influenza Type B Ag NEGATIVE (NEGATIVE) RSV (PCR) NEGATIVE (Negative) SARS-CoV-2 (PCR) NEGATIVE (NEGATIVE) 11/20/21 11/20/21 11/20/21 Range/Units 00:45 02:45 02:45 WBC (4.0-10.5) x10^3/uL RBC (4.1-5.4) x10^6/uL Hgb (12.0-16.0) g/dL Hct (35-47) % MCV (78-100) fL MCH (26-32) pg MCHC (32-36) g/dL RDW (11.5-14.0) % Plt Count (150-450) x10^3/uL MPV (7.5-11.0) fL Gran % (36.0-66.0) % Immature Gran % (Auto) (0.00-0.4) % Nucleat RBC Rel Count (0.00-0.1) % Eos # (Auto) (0-0.5) x10^3/uL Immature Gran # (Auto) (0.00-0.03) x10^3u/L Absolute Lymphs (auto) (1.0-4.6) x10^3/uL Absolute Monos (auto) (0.0-1.3) x10^3/uL Absolute Nucleated RBC (0.00-0.01) x10^3u/L Lymphocytes % (24.0-44.0) % Monocytes % (0.0-12.0) % Eosinophils % (0.00-5.0) % Basophils % (0.0-0.4) % Absolute Granulocytes (1.4-6.9) x10^3/uL Basophils # (0-0.4) x10^3/uL Sodium (137-145) mmol/L Potassium (3.5-5.1) mmol/L Chloride (98-107) mmol/L Carbon Dioxide (22-30) mmol/L Anion Gap (5-15) MEQ/L BUN (7-17) mg/dL Creatinine (0.52-1.04) mg/dL Estimated GFR ML/MIN Glucose (74-106) mg/dL Calcium (8.4-10.2) mg/dL Total Bilirubin (0.2-1.3) mg/dL AST (14-36) U/L ALT (0-35) U/L Alkaline Phosphatase (38-126) U/L Troponin I < 0.012 < 0.012 (0.000-0.034) ng/mL NT-Pro-B Natriuret Pep (0-900) pg/mL Serum Total Protein (6.3-8.2) g/dL Albumin (3.5-5.0) g/dL Triglycerides 65 (30-150) mg/dL Cholesterol 133 (50-200) mg/dL LDL Cholesterol 52 (30-100) mg/dL HDL Cholesterol 54 (40-60) mg/dL Heart Disease Risk Ratio 2.5 Influenza Type A Ag (NEGATIVE) Influenza Type B Ag (NEGATIVE) RSV (PCR) (Negative) SARS-CoV-2 (PCR) (NEGATIVE) - Radiology Impressions Radiology Exams & Impressions: Radiology Procedures Category Date Time Status CHEST 1 VIEW (PORTABLE) Stat Exams 11/19/21 14:02 Completed CHEST 2 VIEWS (PA AND LAT) Routine Exams 11/20/21 Ordered - Other Procedures and Tests Respiratory Therapy 11/21/21 05:00 EKG ONCE 11/22/21 05:00 EKG ONCE Assessment/Plan (1) Chest pain Current Visit: Yes Status: Acute Qualifiers: Chest pain type: unspecified Qualified Code(s): R07.9 - Chest pain, unspecified Assessment & Plan: VT ruled out with 4 neg troponins. F/u with PCP and cardiology. She did have some crackles in her lungs on exam; CXR is pending. Code(s): R07.9 - CHEST PAIN, UNSPECIFIED (2) Leg swelling Current Visit: Yes Status: Chronic Code(s): M79.89 - OTHER SPECIFIED SOFT TISSUE DISORDERS (3) Shortness of breath Current Visit: Yes Status: Resolved Code(s): R06.02 - SHORTNESS OF BREATH (4) Hypertension Current Visit: No Status: Chronic Qualifiers: Hypertension type: primary hypertension Qualified Code(s): I10 - Essential (primary) hypertension Assessment & Plan: Will not change BP meds as the elderly often have resultant hypotension at home after hospital stay. Also, some of her systolic are in the 130s. F/u with Dr. Tucker in 1 week. If CP returns or has other worrisome sx, return to ER at any time. Code(s): I10 - ESSENTIAL (PRIMARY) HYPERTENSION (5) Diarrhea Current Visit: Yes Status: Acute Qualifiers: Diarrhea type: unspecified type Qualified Code(s): R19.7 - Diarrhea, unspecified Assessment & Plan: C. diff ordered here. Code(s): R19.7 - DIARRHEA, UNSPECIFIED Hospital Summary - Hospital Course Hospital Course: Pt is 70 yo female pt of Dr. Tucker with CAD and hx stents and VT admitted through ER with Cp to r/o VT. Troponins neg x 4. EKG nonacute in ER. WBC nl, BMP nl. Chol actually quite good. She's had some hypertension overnight into the 170s systolic, with some systolic BP into the 130s. She is feeling good this morning, would like to discharge to home. She thinks she has had a stress test within the past 1 year. Will have her f/u with Dr. Tucker and Dr. Dave, her cuff folder. Will send her on her usual home medications; she is nearly out of lisinopril so will refill that temporarily. - Vitals & Intake/Output Vital Signs: Vital Signs Temperature 97.5 F 11/20/21 08:00 Pulse Rate 73 11/20/21 08:00 Respiratory Rate 17 11/20/21 08:00 Blood Pressure 149/84 11/20/21 08:00 O2 Sat by Pulse Oximetry 94 L 11/20/21 08:00 Intake & Output: Intake & Output 11/17/21 11/18/21 11/19/21 11/20/21 11:59 11:59 11:59 11:59 Intake Total 200 Output Total 1 Balance 199 Weight 112.9 kg - Lab Result Diagrams: 11/19/21 14:01 11/19/21 14:25 Lab Results-Last 24 Hrs: Lab Results-Last 24 Hours 11/19/21 11/19/21 11/19/21 Range/Units 14:01 14:25 14:25 WBC 7.8 (4.0-10.5) x10^3/uL RBC 5.20 (4.1-5.4) x10^6/uL Hgb 15.1 (12.0-16.0) g/dL Hct 47.0 (35-47) % MCV 90.4 (78-100) fL MCH 29.0 (26-32) pg MCHC 32.1 (32-36) g/dL RDW 14.5 H (11.5-14.0) % Plt Count 259 (150-450) x10^3/uL MPV 11.7 H (7.5-11.0) fL Gran % 64.0 (36.0-66.0) % Immature Gran % (Auto) 0.4 (0.00-0.4) % Nucleat RBC Rel Count 0.0 (0.00-0.1) % Eos # (Auto) 0.13 (0-0.5) x10^3/uL Immature Gran # (Auto) 0.03 (0.00-0.03) x10^3u/L Absolute Lymphs (auto) 2.09 (1.0-4.6) x10^3/uL Absolute Monos (auto) 0.51 (0.0-1.3) x10^3/uL Absolute Nucleated RBC 0.00 (0.00-0.01) x10^3u/L Lymphocytes % 26.8 (24.0-44.0) % Monocytes % 6.5 (0.0-12.0) % Eosinophils % 1.7 (0.00-5.0) % Basophils % 0.6 (0.0-0.4) % Absolute Granulocytes 4.98 (1.4-6.9) x10^3/uL Basophils # 0.05 (0-0.4) x10^3/uL Sodium 138 (137-145) mmol/L Potassium 3.6 (3.5-5.1) mmol/L Chloride 104 (98-107) mmol/L Carbon Dioxide 26 (22-30) mmol/L Anion Gap 11.9 (5-15) MEQ/L BUN 17 (7-17) mg/dL Creatinine 0.66 (0.52-1.04) mg/dL Estimated GFR > 60.0 ML/MIN Glucose 101 (74-106) mg/dL Calcium 9.1 (8.4-10.2) mg/dL Total Bilirubin 0.60 (0.2-1.3) mg/dL AST 34 (14-36) U/L ALT 33 (0-35) U/L Alkaline Phosphatase 116 (38-126) U/L Troponin I (0.000-0.034) ng/mL NT-Pro-B Natriuret Pep 267 (0-900) pg/mL Serum Total Protein 7.3 (6.3-8.2) g/dL Albumin 4.1 (3.5-5.0) g/dL Triglycerides (30-150) mg/dL Cholesterol (50-200) mg/dL LDL Cholesterol (30-100) mg/dL HDL Cholesterol (40-60) mg/dL Heart Disease Risk Ratio Influenza Type A Ag (NEGATIVE) Influenza Type B Ag (NEGATIVE) RSV (PCR) (Negative) SARS-CoV-2 (PCR) (NEGATIVE) 11/19/21 11/19/21 11/19/21 Range/Units 15:00 16:30 20:45 WBC (4.0-10.5) x10^3/uL RBC (4.1-5.4) x10^6/uL Hgb (12.0-16.0) g/dL Hct (35-47) % MCV (78-100) fL MCH (26-32) pg MCHC (32-36) g/dL RDW (11.5-14.0) % Plt Count (150-450) x10^3/uL MPV (7.5-11.0) fL Gran % (36.0-66.0) % Immature Gran % (Auto) (0.00-0.4) % Nucleat RBC Rel Count (0.00-0.1) % Eos # (Auto) (0-0.5) x10^3/uL Immature Gran # (Auto) (0.00-0.03) x10^3u/L Absolute Lymphs (auto) (1.0-4.6) x10^3/uL Absolute Monos (auto) (0.0-1.3) x10^3/uL Absolute Nucleated RBC (0.00-0.01) x10^3u/L Lymphocytes % (24.0-44.0) % Monocytes % (0.0-12.0) % Eosinophils % (0.00-5.0) % Basophils % (0.0-0.4) % Absolute Granulocytes (1.4-6.9) x10^3/uL Basophils # (0-0.4) x10^3/uL Sodium (137-145) mmol/L Potassium (3.5-5.1) mmol/L Chloride (98-107) mmol/L Carbon Dioxide (22-30) mmol/L Anion Gap (5-15) MEQ/L BUN (7-17) mg/dL Creatinine (0.52-1.04) mg/dL Estimated GFR ML/MIN Glucose (74-106) mg/dL Calcium (8.4-10.2) mg/dL Total Bilirubin (0.2-1.3) mg/dL AST (14-36) U/L ALT (0-35) U/L Alkaline Phosphatase (38-126) U/L Troponin I < 0.012 < 0.012 (0.000-0.034) ng/mL NT-Pro-B Natriuret Pep (0-900) pg/mL Serum Total Protein (6.3-8.2) g/dL Albumin (3.5-5.0) g/dL Triglycerides (30-150) mg/dL Cholesterol (50-200) mg/dL LDL Cholesterol (30-100) mg/dL HDL Cholesterol (40-60) mg/dL Heart Disease Risk Ratio Influenza Type A Ag NEGATIVE (NEGATIVE) Influenza Type B Ag NEGATIVE (NEGATIVE) RSV (PCR) NEGATIVE (Negative) SARS-CoV-2 (PCR) NEGATIVE (NEGATIVE) 11/20/21 11/20/21 11/20/21 Range/Units 00:45 02:45 02:45 WBC (4.0-10.5) x10^3/uL RBC (4.1-5.4) x10^6/uL Hgb (12.0-16.0) g/dL Hct (35-47) % MCV (78-100) fL MCH (26-32) pg MCHC (32-36) g/dL RDW (11.5-14.0) % Plt Count (150-450) x10^3/uL MPV (7.5-11.0) fL Gran % (36.0-66.0) % Immature Gran % (Auto) (0.00-0.4) % Nucleat RBC Rel Count (0.00-0.1) % Eos # (Auto) (0-0.5) x10^3/uL Immature Gran # (Auto) (0.00-0.03) x10^3u/L Absolute Lymphs (auto) (1.0-4.6) x10^3/uL Absolute Monos (auto) (0.0-1.3) x10^3/uL Absolute Nucleated RBC (0.00-0.01) x10^3u/L Lymphocytes % (24.0-44.0) % Monocytes % (0.0-12.0) % Eosinophils % (0.00-5.0) % Basophils % (0.0-0.4) % Absolute Granulocytes (1.4-6.9) x10^3/uL Basophils # (0-0.4) x10^3/uL Sodium (137-145) mmol/L Potassium (3.5-5.1) mmol/L Chloride (98-107) mmol/L Carbon Dioxide (22-30) mmol/L Anion Gap (5-15) MEQ/L BUN (7-17) mg/dL Creatinine (0.52-1.04) mg/dL Estimated GFR ML/MIN Glucose (74-106) mg/dL Calcium (8.4-10.2) mg/dL Total Bilirubin (0.2-1.3) mg/dL AST (14-36) U/L ALT (0-35) U/L Alkaline Phosphatase (38-126) U/L Troponin I < 0.012 < 0.012 (0.000-0.034) ng/mL NT-Pro-B Natriuret Pep (0-900) pg/mL Serum Total Protein (6.3-8.2) g/dL Albumin (3.5-5.0) g/dL Triglycerides 65 (30-150) mg/dL Cholesterol 133 (50-200) mg/dL LDL Cholesterol 52 (30-100) mg/dL HDL Cholesterol 54 (40-60) mg/dL Heart Disease Risk Ratio 2.5 Influenza Type A Ag (NEGATIVE) Influenza Type B Ag (NEGATIVE) RSV (PCR) (Negative) SARS-CoV-2 (PCR) (NEGATIVE) - Radiology Exams Ordered Rad Exams-Entire Visit: Radiology Procedures Category Date Time Status CHEST 1 VIEW (PORTABLE) Stat Exams 11/19/21 14:02 Completed CHEST 2 VIEWS (PA AND LAT) Routine Exams 11/20/21 Ordered - Procedures and Test Procedures and Tests throughout Hospitalization: Therapy Orders & Screens 11/19/21 21:25 EKG ONCE Comment: Diagnosis: ACS, SOB 11/19/21 22:00 RT Screen per Nursing Assess ONCE Comment: Protocol Order Physician Instructions: Greater than 3 points order RT Admission Screen Reason For Exam: Triggered on Admission Diagnosis: ACS, SOB Diagnosis: ACS, SOB Pneumonia: No Home O2: No Asthma: No CHF: Yes Home CPAP/BIPAP: No Home Nebs/MDI: Yes Total Points: 8 11/20/21 05:00 EKG ONCE Comment: Diagnosis: ACS, SOB 11/21/21 05:00 EKG ONCE Comment: Diagnosis: ACS, SOB 11/22/21 05:00 EKG ONCE Comment: Diagnosis: ACS, SOB - Discharge Disposition: Home, Self-Care Condition: Good Prescriptions: New Lisinopril 20 mg [Zestril 20 MG] 20 mg PO BID #60 tablet Continue Atorvastatin Calcium 80 mg PO DAILY Potassium Chloride Tab* [Klor Con] 10 meq PO BID Albuterol Sulfate [Proventil Hfa] 2 puffs QID PRN PRN Reason: Shortness Of Breath Furosemide 20 mg [Lasix 20 mg] 20 mg PO BID Metoprolol Tartrate 25 mg [Lopressor 25MG Tab] 25 mg PO BID Nitroglycerin 0.4 mg Tablet [Nitrostat 0.4 MG Tablet] 0.4 mg PO UD Discontinued lisinopriL [Lisinopril] 20 mg PO BID Follow up with: MARCI SERNA NP [Primary Care Provider] -
--- NOTE | 2021-11-20 09:00 | XRAY ---
Indication: "Crackles" in lung bases. Comparison: One day earlier. AP/lateral chest obtained in wheelchair demonstrates new tiny bibasilar effusions. Remaining chest unchanged again with mild left base pleural parenchymal opacity. Heart not enlarged again with CABG.
[2021-11-20] MEDS: Lopressor 25MG Tab PO SCH (09:07)
[2021-11-20] MEDS: Zestril 20 MG PO SCH (09:07)
[2021-11-20] MEDS: Klor Con PO SCH (09:07)
[2021-11-20] MEDS ORDERED: FLUZONE HIGH-DOSE QUAD 2022-23 IM ONE (10:00)
== END 2021-11-20 09:35 | disposition home or self-care (01) ==
LOC: ED 13:20 → MED SURG 18:20
PROVIDERS: ADMIT Family Medicine; ATTEND Family Medicine
DX: R07.9 Chest pain, unspecified (principal); M79.89 Other specified soft tissue disorders; R06.02 Shortness of breath; I10 Essential (primary) hypertension; E11.9 Type 2 diabetes mellitus without complications; R19.7 Diarrhea, unspecified; I25.10 Atherosclerotic heart disease of native coronary artery without angina pectoris; I25.2 Old myocardial infarction; Z79.899 Other long term (current) drug therapy; Z20.828 Contact with and (suspected) exposure to other viral communicable diseases
CPT/HCPCS: 0241U; 36000; 36415; 71045; 71046; 80053; 80061; 83721; 83880; 84484; 85025; 87040; 93005; 93041; 93268; 94760; 99284; G0378; 90662; J2405; A9270-GY